=== PATIENT | male | born 1950 | race Caucasian/White ===

== ENCOUNTER 2019-10-23 09:33 | Inpatient (IN) | payer MEDICARE, OTHER ==
[~2019-10-23] VITALS: Ht 182.9 cm; Wt 82.6 kg
[2019-10-23] VITALS (17 sets, daily range): BP systolic 79–142; BP diastolic 38–110
--- NOTE | 2019-10-23 09:40 | NUR ---
BIB ra, pt was found down altered in apartment, BS 150 on scene. On room air, breathing evenly and unlabored. connected to the monitor and pulse ox, kept comfortable, will continue to monitor accordingly.
[2019-10-23] MEDS ORDERED: IV NS 0.9% 500 ML BAG IV ONE (10:00)
--- NOTE | 2019-10-23 10:01 | NUR ---
waitng for labs and ekg @1000 yw
[2019-10-23 10:07] LABS: BASOPHILS # (AUTO) 0.2 /CMM (0.0-0.2); BASOPHILS % (AUTO) 0.9 % (0.0-2.0); EOSINOPHILS % (AUTO) 0.1 % (0.0-6.0); HEMATOCRIT 45 % (39-51); HEMOGLOBIN 14.6 g/dL (13.5-17.5); LYMPHOCYTES # (AUTO) 1.1 /CMM (0.8-4.8); LYMPHOCYTES % (AUTO) 4.6 % (20.0-44.0); MEAN CORPUSCULAR HGB CONC 32 g/dl (31.0-36.0); MEAN CORPUSCULAR VOLUME 103 fL (80-96); MONOCYTES # (AUTO) 2.1 /CMM (0.1-1.30); MONOCYTES % (AUTO) 9.2 % (2.0-12.0); NEUTROPHILS # (AUTO) 19.8 /CMM (1.8-8.9); NEUTROPHILS % (AUTO) 85.2 % (43.0-81.0); PLATELET COUNT (AUTO) 446 /CMM (150-450); WHITE BLOOD COUNT (AUTO) 23.2 K/uL (4.3-11.0)
[2019-10-23 10:09] LABS: APPEARANCE,URINE Clear (CLEAR); BILIRUBIN,URINE LARGE (NEGATIVE); BLOOD, URINE Negative Ery/uL (NEGATIVE); COLOR,URINE Yellow (YELLOW); KETONES,URINE 15 (NEGATIVE); LEUKOCYTE ESTERASE ,URINE Negative (NEGATIVE); NITRITE, URINE Negative (NEGATIVE); PROTEIN,URINE 100 mg/dl (NEGATIVE); UGLUCOSE Negative (NEGATIVE)
[2019-10-23 10:21] LABS: BACTERIA,URINE Rare /HPF (None Seen); SQUAMOUS EPITHELIAL CELL,UR None Seen /HPF (None Seen); WBC,URINE 0-2 /HPF (0-3)
[2019-10-23] MEDS ORDERED: CEFEPIME 1 GM in IV D5W 50 ML IV ONE (10:30)
[2019-10-23] MEDS ORDERED: DILTIAZEM HCL 25 MG IV IVP ONE (10:30)
[2019-10-23] MEDS ORDERED: VANCOMYCIN 1 GM in IV D5W 250 ML IV ONE (10:30)
[2019-10-23] MEDS ORDERED: DILTIAZEM HCL IV 125 MG in IV D5W 100 ML IV ONE (10:30)
[2019-10-23 10:34] LABS: ALANINE AMINOTRANSFERASE 68 U/L (12-78); ALBUMIN 2.8 g/dL (3.4-5.0); ALCOHOL, BLOOD < 3 mg/dL (0-0); ALKALINE PHOSPHATASE 124 U/L (46-116); ASPARTATE AMINOTRANSFERASE 54 U/L (15-37); BILIRUBIN,DIRECT 0.6 mg/dL (0.0-0.2); BILIRUBIN,TOTAL 1.4 mg/dL (0.2-1.0); CALCIUM, SERUM 9.4 mg/dL (8.5-10.1); CARBON DIOXIDE 27 mmol/L (21-32); CHLORIDE 115 mmol/L (98-107); CREATININE 1.8 mg/dL (0.6-1.3); GLUCOSE 177 mg/dL (74-106); POTASSIUM 3.5 mmol/L (3.5-5.1); TOTAL PROTEIN, SERUM 8.1 g/dL (6.4-8.2); UREA NITROGEN, BLOOD 38 mg/dL (7-18)
[2019-10-23 10:35] LABS: ACETAMINOPHEN 0 ug/ml (10-30); SALICYLATE 1.1 mg/dL (2.8-20.0)
[2019-10-23 10:36] LABS: SODIUM SERUM 159 mmol/L (136-145)
--- NOTE | 2019-10-23 10:36 | NUR ---
SODIUM 159 MADE AWARE.
[2019-10-23] MEDS ORDERED: DILTIAZEM HCL 25 MG IV ONE (10:45)
[2019-10-23 11:02] LABS: SERUM AMMONIA 10 umol/L (11-32)
[2019-10-23] MEDS ORDERED: IV NS 0.9% 1,000 ML IV ONE (11:30)
[2019-10-23 11:40] LABS: THYROID STIMULATING HORMONE 2.717 uIU/mL (0.358-3.74)
[2019-10-23] MEDS ORDERED: LEVE500T9 PO (11:47)
[2019-10-23] MEDS ORDERED: DEXA4TAB2 PO (11:47)
[2019-10-23] MEDS ORDERED: PIOG30TA10 PO (11:47)
[2019-10-23] MEDS ORDERED: TRIA1TAB3 PO (11:47)
[2019-10-23] MEDS ORDERED: ALFU10TA10 PO (11:47)
[2019-10-23] MEDS ORDERED: DORZ10DR10 EACHEYE (16:16)
[2019-10-23] MEDS ORDERED: BRIM5DRO2 EACHEYE (16:16)
[2019-10-23] MEDS ORDERED: DORZOLAMIDE OPTH 2% 10 ML BOTTLE EACHEYE SCH (17:00)
[2019-10-23] MEDS ORDERED: CEFEPIME 1 GM in IV NS 0.9% 50 ML IV SCH (17:00)
[2019-10-23] MEDS ORDERED: ONDANSETRON HCL/PF 4 MG/2 ML VIAL IVP PRN (17:00)
[2019-10-23] MEDS ORDERED: IV NS 0.9% 1,000 ML BAG IV ONE (17:00)
[2019-10-23] MEDS ORDERED: DILTIAZEM HCL IV 125 MG in IV NS 0.9% 100 ML IV PRN (17:00)
[2019-10-23] MEDS ORDERED: Z GUARD REMEDY 2 OZ OINT TP PRN (17:00)
[2019-10-23] MEDS ORDERED: ACETAMINOPHEN 325 MG TABLET PO PRN (17:00)
--- NOTE | 2019-10-23 17:01 | NUR ---
wheeled patient via gurney accompanied by EMT and RN in distress. Cardizem infusing on transfer. RN at bedside to assume care.
[2019-10-23] MEDS ORDERED: FEE PK DOSING 1 MIN EA MC ONE (17:29)
[2019-10-23] MEDS: LORAZEPAM INJ 2 MG/ML VIAL IV PRN (17:42)
--- NOTE | 2019-10-23 18:00 | NUR ---
WILTON WEAVER INITIAL NOTE RECEIVED PATIENT ANXIOUS, GUARDED. RESPONDS TO PAINFUL STIMULI, DOES NOT SPEAK AT THIS TIME. ABLE TO NOD YES OR NO. DENIES PAIN, NODS YES TO FEELING ANXIOUS. NOTED PATIENT PULLING LINES, REORIENTED. INFORMED DR VITALE PATIENT IS VERY ANXIOUS AND TACHY AT 160'S, WITH ORDER FOR ATIVAN 0.5MG Q6 PRN. RECEIVED PATIENT WITH CARDIZEM AT 0.5MG/HR RUNNING. SKIN ASSESSMENT DONE. ON TELE MONITOR SINUS TACH. SIDE RAILS UP AND LOCKED. BED KEPT AT LOWEST POSITION. CALL LIGHT KEPT WITHIN EASY REACH. WILL CONTINUE TO MONITOR.
[2019-10-23] MEDS: TIMOLOL 0.5% SOLN OPHTH 5 ML BOTTLE EACHEYE SCH (19:13)
[2019-10-23] MEDS: IV NS 0.9% 1,000 ML IV PRN (19:34)
--- NOTE | 2019-10-23 20:20 | NUR ---
BIAS BINDING CUTTER NOTE MED NOT GIVEN PASSED ON TO [facility]LE BPM CONSULTANT TO ADMINISTER, DUE MEDICATIONS WERE NOT AVAILABLE WHEN THEY WERE DUE. UNABLE TO DO IV SPREADSHEET FOR 1300ML NS ONE TIME ORDER. DID NOT APPEAR ON SPREADSHEET, ANOTHER RN CONFIRMED.
--- NOTE | 2019-10-23 20:30 | NUR ---
LINE INSTALLATION SUPERVISOR: PT REMAINS LETHARGIC, OPENS EYES WT TOUCH AND PAIN STIMULI. FOLLOW SIMPLE COMMANDS AT TIMES. UNCONTROLLED A. FIB ON TWISTING FRAME OPERATOR, CONTINUE ON CARDIZEM DRIP AT 5MG/HR, WILL TITRATE NEEDED. AFEBRILE. STILL ON NS AT 125ML/HR. LEFT NGT INSERTED AND PLACEMENT VERIFIED BY PRIMARY NURSE AND CHARGE NURSE JAGDEEP. F/C PATENT AND INTACT DRAINING CLOUDY MAURICE COLORED URINE TO GRAVITY. HOB AT 35 DEGREES. BED IN LOWEST POSITION AND LOCKED, SIDE RAILS UP X 3, BED ALARM ACTIVATED. WILL CONTINUE TO MONITOR.
[2019-10-23] MEDS: BRIMONIDINE TARTRATE OPHT SOLN 5 ML BOTTLE EACHEYE SCH (21:10)
[2019-10-23] MEDS: LEVETIRACETAM SOL (5 ML) 100 MG/ML UDC PO SCH (21:13)
[2019-10-23] MEDS: CEFEPIME 2 GM in IV D5W 100 ML IV SCH (21:13)
[2019-10-23] MEDS: ENOXAPARIN SODIUM 40 MG/0.4 ML DISP.SYRIN SQ SCH (21:14)
[2019-10-23] MEDS: DEXAMETHASONE 4 MG TABLET PO SCH (21:16)
[2019-10-23] MEDS ORDERED: ZOLPIDEM TARTRATE 5 MG TABLET PO PRN (22:00)
--- NOTE | 2019-10-23 23:00 | NUR ---
TRUCKER: PRIMITIVO. WRIST RESTRAINTS ORDERED BY AND APPLIED FOR EPISODES OF TRYING TO PULL NGT AND IV TUBINGS. SKIN AND CIRCULATION WNL. SAFETY PRECAUTION NOTED AT ALL TIMES.
[2019-10-24] VITALS (38 sets, daily range): BP systolic 74–127; BP diastolic 33–97
--- NOTE | 2019-10-24 | NUR ---
APPLICATOR SPRAYER: CARDIZEM DRIP STOPPED AT THIS TIME FOR LOW BP. ON IN AND OUT OF A. FIB, CONTROLLED. KWESI MIDLINE INSERTED GAUGE 18 AND TOLERATED FAIRLY. WILL CONTINUE TO MONITOR.
[2019-10-24] MEDS: IV NS 0.9% 1,000 ML IV PRN (01:07)
[2019-10-24 04:23] LABS: BASOPHILS # (AUTO) 0.1 /CMM (0.0-0.2); BASOPHILS % (AUTO) 0.5 % (0.0-2.0); EOSINOPHILS % (AUTO) 0.1 % (0.0-6.0); HEMATOCRIT 35 % (39-51); HEMOGLOBIN 11.3 g/dL (13.5-17.5); LYMPHOCYTES # (AUTO) 0.5 /CMM (0.8-4.8); MEAN CORPUSCULAR HGB CONC 32 g/dl (31.0-36.0); MEAN CORPUSCULAR VOLUME 104 fL (80-96); NEUTROPHILS # (AUTO) 15.6 /CMM (1.8-8.9); NEUTROPHILS % (AUTO) 90.4 % (43.0-81.0); PLATELET COUNT (AUTO) 269 /CMM (150-450); RED BLOOD CELL COUNT(AUTO) 3.36 MIL/uL (4.5-6.0); WHITE BLOOD COUNT (AUTO) 17.3 K/uL (4.3-11.0)
[2019-10-24 04:53] LABS: THYROID STIMULATING HORMONE 1.138 uIU/mL (0.358-3.74)
[2019-10-24 04:59] LABS: ALBUMIN 2.1 g/dL (3.4-5.0); BILIRUBIN,TOTAL 1.1 mg/dL (0.2-1.0); CALCIUM, SERUM 7.7 mg/dL (8.5-10.1); CREATININE 1.1 mg/dL (0.6-1.3); MAGNESIUM 2.6 mg/dL (1.8-2.4); PHOSPHORUS 2.4 mg/dL (2.5-4.9); POTASSIUM 3.2 mmol/L (3.5-5.1); TOTAL PROTEIN, SERUM 6.2 g/dL (6.4-8.2)
[2019-10-24] MEDS: VANCOMYCIN 1 GM in IV D5W 250 ML IV SCH ×2 (05:47→23:26)
--- NOTE | 2019-10-24 06:15 | NUR ---
ASSOCIATE CHEMIST: DR. WOOTEN MADE AWARE OF CRITICAL SODIUM RESULT WT ORDER TO CHANGE IVF TO 1/2 NS AT 125ML/HR. NOTED AND CARRIED OUT. STILL IN AND OUT OF A. FIB CONTROLLED. NO OTHER SIGNIFICANT L[place]. REMAINS ON R/A WT NO ACUTE DISTRESS. BILAT. SOFT WRIST RESTRAINTS IN PLACE FOR EPISODES OF TRYING TO REMOVE TUBINGS. SKIN AND CIRCULATION WNL. SAFETY PRECAUTION NOTED AT ALL TIMES.
[2019-10-24] MEDS ORDERED: IV 1/2NS 1000 ML 1,000 ML IV PRN (07:00)
[2019-10-24] MEDS ORDERED: POTASSIUM PHOSPHATE MM 15 MMOL in IV NS 0.9% 250 ML IV SCH (08:00)
[2019-10-24] MEDS: DEXAMETHASONE 4 MG TABLET PO SCH ×3 (08:52→18:30)
[2019-10-24] MEDS: TIMOLOL 0.5% SOLN OPHTH 5 ML BOTTLE EACHEYE SCH ×2 (08:52→18:32)
[2019-10-24] MEDS: BRIMONIDINE TARTRATE OPHT SOLN 5 ML BOTTLE EACHEYE SCH ×3 (08:52→18:32)
[2019-10-24] MEDS: LEVETIRACETAM SOL (5 ML) 100 MG/ML UDC PO SCH ×2 (08:52→20:54)
[2019-10-24] MEDS: PANTOPRAZOLE 40 MG VIAL IV SCH (08:52)
[2019-10-24] MEDS: DORZOLAMIDE OPTH 2% 10 ML BOTTLE EACHEYE SCH ×2 (08:52→18:32)
--- NOTE | 2019-10-24 08:52 | NUR ---
WOUND CARE CONSULT: REVIEWED CHART, NURSING DOCUMENTATION AND PHOTOS WHICH SHOW CRUSTED WOUNDS TO LOWER LEGS, UNSTAGEABLE WOUND TO LEFT UPPER SACRUM, LEFT BACK INTACT DEEP TISSUE INJURY AND SCARRING TO SACRUM EXTENDING TO BUTTOCKS, ALL PRESENT ON ADMISSION. RECOMMEND DPM AND SURGICAL CONSULTS. DR LIN AND DR ANN GONGORA NOTIFIED OF CONSULT REQUESTS. RECOMMENDATIONS MADE FOR SKIN PROTECTION AND WOUND CARE. DEFER TO DPM FOR LOWER EXTREMITIES. FIRST STEP LOW AIRLOSS MATTRESS IS ON ORDER. WILL SEE PRN. IN AGREEMENT WITH PLAN OF CARE.
[2019-10-24] MEDS ORDERED: PIOGLITAZONE HCL 15 MG TABLET PO SCH (09:00)
[2019-10-24] MEDS: DAKINS QUARTER STRENGTH (0.125%) 480 ML BOTTLE TOP SCH (09:00)
[2019-10-24] MEDS: POTASSIUM PHOSPHATE MM 7.5 MMOL in IV NS 0.9% 100 ML IV SCH ×2 (09:28→12:29)
[2019-10-24] MEDS: CEFEPIME 2 GM in IV D5W 100 ML IV SCH ×2 (09:37→20:54)
[2019-10-24] MEDS: DIGOXIN INJ 0.5 MG/2 ML AMPUL IV SCH ×2 (12:46→18:32)
--- NOTE | 2019-10-24 12:53 | NUR ---
Social service consult requested by . Pt was found down in his apartment. Pt resides alone. TABLET MAKING MACHINE OPERATOR conducted chart review and consulted with ICU CLARISSA Gray. Per CLARISSA Gray, pt is confused and unable to participate in a conversation. Per CLARISSA Gray, pt does have a cellphone that is unlocked. Pt's bedside RN to attempt to get some phone contacts. CLARISSA Gray reports, pt has lung CA which has metastasized and will most likely need placement once medically cleared. Vice President Process to remain available as needed for support.
[2019-10-24] MEDS: AMMONIUM LACTATE 227 GM BOTTLE TP SCH (18:31)
[2019-10-24] MEDS: IV D5/0.45 NACL 1,000 ML IV PRN (19:02)
--- NOTE | 2019-10-24 20:00 | NUR ---
auriculotherapist notes Received pts in bed with eyes open non verbal ,on tele sr on the monitor pts on R/A sating 98%.no sob no distress noted breathing even and unlabored , v/s stable afebrile , no seizure activities noted .with ngt on left nosetrils pts npo except meds .all due meds given as ordered. with ivf of D5 1/2 ns at 125cc/hr infusing well ,with right ua midline intact and patent , right ac #18 , left arm G#22 intact and patent , hernandez cath intact and patent draining with yellowish urine output , with bilateral soft wrist restraint to prevent from pulling invasive tubing , turned and repositioned , hob elevated for aspiration precaution ,kept pts clean dry and comfortable ,will continue to monitor pts.pts still pending result for covid 19 ,precautionary measures observed at all times pts on droplet precaution .bed on low and locked safety measures observed ,will continue to monitor pts .
[2019-10-24] MEDS: ENOXAPARIN SODIUM 40 MG/0.4 ML DISP.SYRIN SQ SCH (20:55)
[2019-10-25] VITALS (11 sets, daily range): BP systolic 96–118; BP diastolic 54–76
[2019-10-25] MEDS: DIGOXIN INJ 0.5 MG/2 ML AMPUL IV SCH (00:31)
[2019-10-25 05:58] LABS: ALANINE AMINOTRANSFERASE 48 U/L (12-78); ALBUMIN 1.8 g/dL (3.4-5.0); ALKALINE PHOSPHATASE 72 U/L (46-116); ASPARTATE AMINOTRANSFERASE 54 U/L (15-37); BILIRUBIN,TOTAL 0.7 mg/dL (0.2-1.0); CALCIUM, SERUM 7.2 mg/dL (8.5-10.1); CARBON DIOXIDE 23 mmol/L (21-32); CHLORIDE 118 mmol/L (98-107); CREATININE 0.9 mg/dL (0.6-1.3); GLUCOSE 193 mg/dL (74-106); MAGNESIUM 2.3 mg/dL (1.8-2.4); PHOSPHORUS 1.9 mg/dL (2.5-4.9); POTASSIUM 3.3 mmol/L (3.5-5.1); SODIUM SERUM 152 mmol/L (136-145); TOTAL PROTEIN, SERUM 5.3 g/dL (6.4-8.2); UREA NITROGEN, BLOOD 20 mg/dL (7-18)
[2019-10-25] MEDS: AMMONIUM LACTATE 227 GM BOTTLE TP SCH ×2 (09:00→17:00)
[2019-10-25] MEDS: TIMOLOL 0.5% SOLN OPHTH 5 ML BOTTLE EACHEYE SCH ×2 (09:00→17:23)
[2019-10-25] MEDS: DEXAMETHASONE 4 MG TABLET PO SCH ×3 (09:00→17:23)
[2019-10-25] MEDS: BRIMONIDINE TARTRATE OPHT SOLN 5 ML BOTTLE EACHEYE SCH ×3 (09:00→17:23)
[2019-10-25] MEDS: DORZOLAMIDE OPTH 2% 10 ML BOTTLE EACHEYE SCH ×2 (09:00→17:23)
[2019-10-25] MEDS: PANTOPRAZOLE 40 MG VIAL IV SCH (09:47)
[2019-10-25] MEDS: CEFEPIME 2 GM in IV D5W 100 ML IV SCH ×2 (09:48→21:19)
[2019-10-25] MEDS: LEVETIRACETAM SOL (5 ML) 100 MG/ML UDC PO SCH ×2 (09:48→21:19)
[2019-10-25] MEDS: IV D5/0.45 NACL 1,000 ML IV PRN (10:01)
[2019-10-25] MEDS ORDERED: POTASSIUM PHOSPHATE MM 15 MMOL in IV NS 0.9% 250 ML IV SCH (10:30)
[2019-10-25] MEDS ORDERED: POTASSIUM CHLORIDE 20 MEQ TAB.PRT.SR PO SCH (12:00)
[2019-10-25] MEDS: POTASSIUM PHOSPHATE MM 7.5 MMOL in IV D5W 100 ML IV SCH ×2 (12:51→14:59)
[2019-10-25 13:05] LABS: BASOPHILS % (AUTO) 0.2 % (0.0-2.0); HEMATOCRIT 30 % (39-51); HEMOGLOBIN 9.7 g/dL (13.5-17.5); LYMPHOCYTES # (AUTO) 0.6 /CMM (0.8-4.8); LYMPHOCYTES % (AUTO) 3.1 % (20.0-44.0); MEAN CORPUSCULAR HGB CONC 32 g/dl (31.0-36.0); MEAN CORPUSCULAR VOLUME 103 fL (80-96); MONOCYTES # (AUTO) 0.6 /CMM (0.1-1.30); MONOCYTES % (AUTO) 3.6 % (2.0-12.0); NEUTROPHILS # (AUTO) 16.5 /CMM (1.8-8.9); NEUTROPHILS % (AUTO) 93.1 % (43.0-81.0); PLATELET COUNT (AUTO) 230 /CMM (150-450); WHITE BLOOD COUNT (AUTO) 17.7 K/uL (4.3-11.0)
[2019-10-25 13:33] LABS: BAND % (MANUAL) 3 % (0.0-5.0); LYMPHOCYTES % (MANUAL) 2 % (16-48); MONOCYTES % (MANUAL) 3 % (0-11.0)
[2019-10-25 13:34] LABS: NEUTROPHILS % (MANUAL) 92 (42-76)
[2019-10-25] MEDS: DAKINS QUARTER STRENGTH (0.125%) 480 ML BOTTLE TOP SCH (17:22)
[2019-10-25] MEDS: VANCOMYCIN 1 GM in IV D5W 250 ML IV SCH (17:24)
--- NOTE | 2019-10-25 19:43 | NUR ---
RN OPENING NOTE RECEIVED PATIENT IN BED RESTING,ALERT OPEN EYES VERBALLY RESPONSIVE ,NON SENSE TALKING, BREATHING IS EVEN AND UNLABORED NO SOB NOT ACUTE DISTRESS NOTED,ON ROOM AIR,ON BILATERAL RESTRAINS FOR MOVING LINES,ON D5 1/2 NS 125ML/HR,IV SITE IS ON RIGHT AC #18 G INTACT,NPO ON NGT.NGT IS IN PLACE NO RESIDUAL NOTED,KEEP COMFORTABLE,CONTINUE TO MONITOR.
[2019-10-25] MEDS: ENOXAPARIN SODIUM 40 MG/0.4 ML DISP.SYRIN SQ SCH (21:21)
[2019-10-26] VITALS: BP 111/66
[2019-10-26] MEDS: IV D5/0.45 NACL 1,000 ML IV PRN ×2 (01:45→14:39)
[2019-10-26 04:00] VITALS: BP 112/77
[2019-10-26] MEDS: VANCOMYCIN 1 GM in IV D5W 250 ML IV SCH ×2 (04:47→17:13)
--- NOTE | 2019-10-26 06:51 | NUR ---
RN CLOSING NOTE PATIENT REMAINS ALERT CONFUSED VERBALLY RESPONSIVE NON SENCE TALKING,NPO ON NGT FEEDING ON IV HYDRATION D5 1/2NS 125CC/HR,ON BRISCOE CATHETER,URINE DRAINING WELL,ALL DUE MEDS GIVEN VIA NGT,HE TOLERATED WELL,KEPT CLEAN AND DRY ALL THE TIME,ALL NEEDS MET.WILL ENDORSE TO NEXT COMING SHIFT FOR CONTINUATION OF CARE.
[2019-10-26 06:55] LABS: BASOPHILS % (AUTO) 0.2 % (0.0-2.0); EOSINOPHILS % (AUTO) 0.1 % (0.0-6.0); HEMATOCRIT 31 % (39-51); HEMOGLOBIN 10.4 g/dL (13.5-17.5); LYMPHOCYTES # (AUTO) 0.7 /CMM (0.8-4.8); LYMPHOCYTES % (AUTO) 3.6 % (20.0-44.0); MEAN CORPUSCULAR HGB CONC 33 g/dl (31.0-36.0); MEAN CORPUSCULAR VOLUME 100 fL (80-96); MONOCYTES # (AUTO) 0.8 /CMM (0.1-1.30); MONOCYTES % (AUTO) 3.9 % (2.0-12.0); NEUTROPHILS # (AUTO) 18.7 /CMM (1.8-8.9); NEUTROPHILS % (AUTO) 92.2 % (43.0-81.0); PLATELET COUNT (AUTO) 221 /CMM (150-450); RED BLOOD CELL COUNT(AUTO) 3.14 MIL/uL (4.5-6.0); WHITE BLOOD COUNT (AUTO) 20.3 K/uL (4.3-11.0)
[2019-10-26 07:22] LABS: ALBUMIN 1.8 g/dL (3.4-5.0); BILIRUBIN,TOTAL 0.6 mg/dL (0.2-1.0); CREATININE 0.9 mg/dL (0.6-1.3); MAGNESIUM 2.1 mg/dL (1.8-2.4); POTASSIUM 3.7 mmol/L (3.5-5.1); TOTAL PROTEIN, SERUM 5.3 g/dL (6.4-8.2)
[2019-10-26] MEDS: DEXAMETHASONE 4 MG TABLET PO SCH ×3 (07:32→17:09)
--- NOTE | 2019-10-26 07:49 | NUR ---
RN OPENING NOTE: RECEIVED PATIENT IN ROOM. NO SIGNS OF RESPIRATORY. HR 114. SAFETY MEASURES IMPLEMENTED, BED IN LOWEST POSITION, LOCKED, SIDE RAILS UP, CALL LIGHT WITHIN REACH. ENDORSED TO INCOMING SHIFT RN FOR CONTINUITY OF CARE.
[2019-10-26 08:00] VITALS: BP 99/68
[2019-10-26] MEDS: LEVETIRACETAM SOL (5 ML) 100 MG/ML UDC PO SCH ×2 (08:34→22:14)
[2019-10-26] MEDS: PANTOPRAZOLE 40 MG VIAL IV SCH (08:34)
[2019-10-26] MEDS: ENOXAPARIN SODIUM 40 MG/0.4 ML DISP.SYRIN SQ SCH (08:36)
[2019-10-26] MEDS: BRIMONIDINE TARTRATE OPHT SOLN 5 ML BOTTLE EACHEYE SCH ×3 (08:36→16:27)
[2019-10-26] MEDS: TIMOLOL 0.5% SOLN OPHTH 5 ML BOTTLE EACHEYE SCH ×2 (08:37→16:27)
[2019-10-26] MEDS: DORZOLAMIDE OPTH 2% 10 ML BOTTLE EACHEYE SCH ×2 (08:37→16:28)
[2019-10-26] MEDS: DAKINS QUARTER STRENGTH (0.125%) 480 ML BOTTLE TOP SCH (08:38)
[2019-10-26] MEDS: AMMONIUM LACTATE 227 GM BOTTLE TP SCH ×2 (08:39→16:28)
--- NOTE | 2019-10-26 09:30 | NUR ---
JOCELYNE RN NOTES PT HAS CT CHEST ORDERED BY DR MEHTA. TOOK TO CT CHEST AND WAS DONE. PT TOLERATED WELL.
[2019-10-26 10:17] LABS: ABG BASE EXCESS 1.1 mmol/L; ABG OXYGEN SATURATION 98.9 % (92.0-98.5); ABG PCO2 30.2 mmHg (35.0-45.0); ABG PH 7.509 (7.350-7.450); ABG PO2 156.2 mmHg (75.0-100.0); AaDO2 58.2 mmHg; COHb 0.1 % (0.5-1.5); MetHb 0.3 % (0.0-1.5); O2Hb 98.5 % (94.0-97.0); SITE, ABG Right Radial; VENT MODE, BG N/C
[2019-10-26] MEDS: CEFEPIME 2 GM in IV D5W 100 ML IV SCH ×2 (10:30→22:14)
[2019-10-26 12:00] VITALS: BP 110/63
[2019-10-26] MEDS ORDERED: K PHOS NEUTRAL 250 MG TABLET PO ONE (14:30)
[2019-10-26 16:00] VITALS: BP 104/55
[2019-10-26] MEDS: DIGOXIN 0.125 MG TABLET PO SCH (16:34)
--- NOTE | 2019-10-26 16:37 | NUR ---
JOCELYNE RN NOTES INFORMED DOCTOR THAT PATIENT IS STILL RUNNING 125 NS /PER HOUR. DOCTOR ORDERED TO DECREASE TO 75 NS / PER HOUR.
--- NOTE | 2019-10-26 17:17 | NUR ---
JOCELYNE RN NOTES CALLED PHARMACY JOSE TO TELL TROUGH WASN'T CHECKED. THE LAST TROUGH WAS CHECKED ON 10/24/19 Jose ORDERED TROUGH AND RN [facility] ON [facility].
--- NOTE | 2019-10-26 17:40 | NUR ---
JOCELYNE RN NOTES ORDERED SPEECH EVAL BY DR EDMOND ORDER FOR 10/26 AT 8:00 AM
--- NOTE | 2019-10-26 18:11 | NUR ---
RN CLOSING NOTE PATIENT REMAINS IN ROOM. NO SIGNS OF RESPIRATORY DISTRESS. SAFETY MEASURES IMPLEMENTED, BED IN LOWEST POSITION, LOCKED, SIDE RAILS UP, CALL LIGHT WITHIN REACH. ALL NEEDS AND ORDERS ADDRESSED DURING THE SHIFT. ALL DUE MEDS GIVEN ORDERED & SCHEDULED ; PATIENT TOLERATED WELL.PATIENT KEPT CLEAN AND COMFORTABLE WITHIN THE SHIFT. ENDORSED TO INCOMING SHIFT RN FOR CONTINUITY OF CARE.
--- NOTE | 2019-10-26 18:25 | NUR ---
JOCELYNE DEL RIO NOTES PATIENT IS REFUSING INSULIN WANTS HIS METFORMIN INFORMED DR EDMOND IF HE WOULD LIKE FOR ME TO PUT ON ORDER Addendum: 10/26/19 at 1844 by RAOUL GOMEZ RN JOCELYNE DEL RIO NOTES NOT FOR THIS
--- NOTE | 2019-10-26 19:16 | NUR ---
JOCELYNE DEL RIO NOTES PATIETN WANTS BACK INSULIN DUE TO DOCTOR INFORMED NO METFORMIN BECAUSE PT IS IN SEPSIS. GAVE 2 UNIT OF INSULIN BS 144. Addendum: 10/26/19 at 1918 by RAOUL GOMEZ RN JOCELYNE DEL RIO NOTES WRONG PATIENT
--- NOTE | 2019-10-26 19:25 | NUR ---
POWERHOUSE ELECTRICIAN APPRENTICE OPENING NOTES: RECEIVED PATIENT IN BED, AWAKE, A/O X3, WITH PERIODS OF CONFUSION. HOB ELEVATED AT 30 DEGREES, WITH O2 NC AT 3L/MIN. WITH NGT INTACT, CLAMPED. NPO EXCEPT MEDS, TOOLROOM MACHINIST AWARE. WITH BILATERAL SOFT WRISTS RESTRAINTS, CHECKED SKIN AND CIRCULATIONS, WNL. WITH BRISCOE CATHETER INTACT, DRAINING TO YELLOW COLORED URINE. BED ALARM ON. BED IN LOWEST AND LOCKED POSITION. WITH AIR MATTRESS ON. CALL LIGHT WITHIN REACH. WITH RIGHT HAND HEALED SCAB, OPEN TO AIR, WITH BILATERAL HANDS NON-PITTING EDEMA, AND WITH SKIN DISCOLORATIONS. ON COVID ISOLATION.
[2019-10-26 20:00] VITALS: BP 109/65
--- NOTE | 2019-10-26 21:27 | NUR ---
RECEIVED A CALL FROM DR MEHTA AND UPDATED HER WITH THE PATIENT'S STATUS.
[2019-10-27] VITALS: BP 100/41
[2019-10-27 04:00] VITALS: BP 102/50
[2019-10-27] MEDS: IV D5/0.45 NACL 1,000 ML IV PRN (04:34)
[2019-10-27] MEDS: VANCOMYCIN 1 GM in IV D5W 250 ML IV SCH (04:34)
--- NOTE | 2019-10-27 06:30 | NUR ---
PROFESSOR OF PSYCHOLOGY CLOSING NOTES: PATIENT IN BED, ASLEEP. NO SOB NOTED. NO COMPLAIN OF PAIN DURING SHIFT. RESTED THROUGHOUT THE NIGHT. BED ALARM ON. BED IN LOWEST AND LOCKED POSITION. WITH BILATERAL SOFT WRISTS RESTRAINTS.
[2019-10-27 07:03] LABS: BASOPHILS % (AUTO) 0.2 % (0.0-2.0); EOSINOPHILS % (AUTO) 0.1 % (0.0-6.0); HEMATOCRIT 29 % (39-51); HEMOGLOBIN 9.7 g/dL (13.5-17.5); LYMPHOCYTES # (AUTO) 0.9 /CMM (0.8-4.8); LYMPHOCYTES % (AUTO) 5.1 % (20.0-44.0); MEAN CORPUSCULAR HGB CONC 34 g/dl (31.0-36.0); MEAN CORPUSCULAR VOLUME 99 fL (80-96); MONOCYTES # (AUTO) 0.8 /CMM (0.1-1.30); MONOCYTES % (AUTO) 4.5 % (2.0-12.0); NEUTROPHILS # (AUTO) 15.6 /CMM (1.8-8.9); NEUTROPHILS % (AUTO) 90.1 % (43.0-81.0); PLATELET COUNT (AUTO) 202 /CMM (150-450); RED BLOOD CELL COUNT(AUTO) 2.91 MIL/uL (4.5-6.0); WHITE BLOOD COUNT (AUTO) 17.4 K/uL (4.3-11.0)
[2019-10-27 07:09] LABS: CALCIUM, SERUM 7.1 mg/dL (8.5-10.1); CREATININE 0.9 mg/dL (0.6-1.3)
[2019-10-27 08:00] VITALS: BP 102/58
[2019-10-27] MEDS: CEFEPIME 2 GM in IV D5W 100 ML IV SCH ×2 (09:03→20:46)
[2019-10-27] MEDS: DEXAMETHASONE 4 MG TABLET PO SCH ×3 (09:03→17:03)
[2019-10-27] MEDS: PANTOPRAZOLE 40 MG VIAL IV SCH (09:03)
[2019-10-27] MEDS: LEVETIRACETAM SOL (5 ML) 100 MG/ML UDC PO SCH ×2 (09:03→21:09)
[2019-10-27] MEDS: BRIMONIDINE TARTRATE OPHT SOLN 5 ML BOTTLE EACHEYE SCH ×3 (09:04→17:00)
[2019-10-27] MEDS: AMMONIUM LACTATE 227 GM BOTTLE TP SCH ×2 (09:05→17:02)
[2019-10-27] MEDS: TIMOLOL 0.5% SOLN OPHTH 5 ML BOTTLE EACHEYE SCH ×2 (09:05→17:00)
[2019-10-27] MEDS: DORZOLAMIDE OPTH 2% 10 ML BOTTLE EACHEYE SCH ×2 (09:05→17:01)
[2019-10-27] MEDS: DAKINS QUARTER STRENGTH (0.125%) 480 ML BOTTLE TOP SCH (09:59)
[2019-10-27] MEDS ORDERED: POTASSIUM CHLORIDE 20 MEQ TAB.PRT.SR PO SCH (10:00)
[2019-10-27] MEDS: NEUTRA PHOS 1 POWD.PACKET PO SCH ×2 (10:52→17:46)
[2019-10-27] MEDS: POTASSIUM CHLORIDE 20 MEQ TAB.PRT.SR PO SCH ×3 (10:52→12:31)
[2019-10-27 12:00] VITALS: BP 108/61
[2019-10-27 12:16] LABS: IMMUNOGLOBULIN A, SERUM 265 mg/dL (61-437); IMMUNOGLOBULIN G, SERUM 698 mg/dL (603-1613); IMMUNOGLOBULIN M, SERUM 101 mg/dL (20-172)
[2019-10-27] MEDS: DIGOXIN 0.125 MG TABLET PO SCH (13:00)
[2019-10-27 16:00] VITALS: BP 106/72
--- NOTE | 2019-10-27 18:20 | NUR ---
RN NOTES [employer] AIR MATTRESS NOT WORKING. ORDERED NEW PUMP FROM [employer], WAITING TO BE DELIVERED.
--- NOTE | 2019-10-27 19:03 | NUR ---
RN CLOSING NOTES PATIENT IS RESTING IN BED COMFORTABLY AT THIS TIME. NO S.SX OF DISTRESS. PT NEEDS HAVE BEEN MET, VITAL SIGNS ARE STABLE, NO ACUTE CHANGES OCCURRED THROUGHOUT THE SHIFT. SAFETY MEASURES HAVE BEEN IMPLEMENTED, CALL LIGHT IS WITHIN REACH, BED IS IN LOWEST AND LOCKED POSITION, SIDE RAILS UP X2, WILL ENDORSE TO NIGHTSHIFT RN FOR LOUIS.
--- NOTE | 2019-10-27 19:46 | NUR ---
harnessmaker:\ received pt with ngtube on left nare, on clamped. informed day rn and intelligence intern that here is no plaxcement check done after inserting ngtube. ngtube inserted in icu, and its been used since then. pt's abdomen soft to touch with active bowel sound heard upon auscultation. injected 60cc of airfilled syringe, noted gurgling sound. greenish to yellow colored gastric secretions//residual obtained upon withdrawal/aspiration.
[2019-10-27 20:00] VITALS: BP 114/66
--- NOTE | 2019-10-27 20:00 | NUR ---
RN NOTES: PT RECEIVED WITH BILATERAL SOFT WRIST RESTRAINT IN PLACED, PT TRYING TO PULL OUT IV ACCESS, AND NGTUBE NECESSARY FOR TREATMENT. RESTRAINT PROTOCOL FOLLOWED. PT ABLE TO MOVE AND WIGGLE ARMS AND HANDS, RADIAL PULSES PALPABLE AND INTACT, GOOD CAPILLARY REFILL NOTED, NO S/S OF IMPEDIMENT IN CIRCULATION NOTED. WILL CONTINUE MONITORING PT.
--- NOTE | 2019-10-27 20:20 | NUR ---
rn notes: xray being done at bedside
[2019-10-27] MEDS: ENOXAPARIN SODIUM 40 MG/0.4 ML DISP.SYRIN SQ SCH (20:48)
--- NOTE | 2019-10-27 21:07 | NUR ---
rn notes/cxr result/ngtube placement: cxr result came back, result as follows: 1. Hazy opacity at the lateral left lower lobe, which corresponds to lingular consolidation. 2. Well-positioned NG tube tip overlying the gastric body. will administer meds via ngtube
--- NOTE | 2019-10-27 21:10 | NUR ---
rn notes: on aspiration precautions, ngtube placement check, kept on high fowlers, all due meds administered vua ngtube, will leave upright/high fowlers for 30mins post med administration.
--- NOTE | 2019-10-27 21:30 | NUR ---
rn notes: per day rnjabier mattress not working and central was made aware, awaiting for delivery of new air mattress
--- NOTE | 2019-10-27 23:38 | NUR ---
accu check: fingerstick blood glucose chek performed, as pt npo xmeds, ivf dc'd, result obtained is 149.
[2019-10-28] VITALS: BP 106/63
[2019-10-28 04:00] VITALS: BP 110/66
--- NOTE | 2019-10-28 06:48 | NUR ---
end of shift report: pt remains a/o x1-2, on 3l oxygen via nc, respirations even and unlabored. ngtube via left nare remains patent and flushing well, on clamped, 250cc free water flush administered via ngtube as ordered. clarence midline remains patent and flushing well, on hl, no s/s of iv infiltration noted. awaiting delivery of new kci mattress, as the previous kci not working/damanged. all due meds administered, kept on aspiration precautions, hob 45 degree at all times. pt remains on bilateral soft wrist restraint, pt able to move and wiggle arms and hands, noted with good capillary refill, bilateral radial pulses palpable, intact, no s/s of impediment in circulation noted. wound care, am care and complete linen change provided. vs remains stable, needs attended. safety precautions for fall remains engaged, call light in reach, will endorse to day rn for continuity of care.
--- NOTE | 2019-10-28 08:05 | NUR ---
M/S RN OPENING NOTES RECEIVED PT ON BED, ASLEEP YET EASILY AROUSABLE, A/O 1-2, RESPONSIVE TO STIMULI. RESPIRATION EVEN AND NON LABORED, NOT IN ACUTE RESPIRATORY DISTRESS, ON O2 AT 3LPM VIA N/C SATING 100%. ABD SOFT AND NON DISTENDED WITH ACTIVE BOWEL SOUNDS, FC WITH TEAM MAURICE COLOR. SKIN WARM TO TOUCH AND DRY. PT DENIES PAIN AND DISCOMFORT. IV SITE AT RIGHT UPPER MIDLINE, PATENT IN FLUSHING, NO S/SX OF INFILTRATION. NGT IN PLACED PER AUSCULTATION, NO RESIDUAL NOTED, HOB ELEVATED. BED IN LOW LOCKED POSITION, SR X2 UP FOR SAFETY, BED ALARM ON, CALL LIGHT WITHIN REACH. COVID 19 NEGATIVE. WILL CONTINUE PLAN OF CARE.
[2019-10-28 08:12] LABS: CALCIUM, SERUM 7.4 mg/dL (8.5-10.1); CREATININE 0.8 mg/dL (0.6-1.3); POTASSIUM 3.8 mmol/L (3.5-5.1)
[2019-10-28 08:15] VITALS: BP 120/75
[2019-10-28] MEDS: PANTOPRAZOLE 40 MG VIAL IV SCH (08:53)
[2019-10-28] MEDS: DAKINS QUARTER STRENGTH (0.125%) 480 ML BOTTLE TOP SCH (08:53)
[2019-10-28] MEDS: LEVETIRACETAM SOL (5 ML) 100 MG/ML UDC PO SCH ×2 (08:53→20:47)
[2019-10-28] MEDS: AMMONIUM LACTATE 227 GM BOTTLE TP SCH ×2 (08:53→16:26)
[2019-10-28] MEDS: DEXAMETHASONE 4 MG TABLET PO SCH ×3 (08:53→16:26)
[2019-10-28] MEDS: DORZOLAMIDE OPTH 2% 10 ML BOTTLE EACHEYE SCH ×2 (08:54→16:26)
[2019-10-28] MEDS: TIMOLOL 0.5% SOLN OPHTH 5 ML BOTTLE EACHEYE SCH ×2 (08:54→16:26)
[2019-10-28] MEDS: BRIMONIDINE TARTRATE OPHT SOLN 5 ML BOTTLE EACHEYE SCH ×3 (08:54→16:26)
[2019-10-28] MEDS: CEFEPIME 2 GM in IV D5W 100 ML IV SCH ×2 (09:10→20:47)
--- NOTE | 2019-10-28 10:54 | NUR ---
M/S RN NOTES PT SEEN AND EVALUATED BY DR. EDMOND, NEW ORDER OF SWALLOW EVAL FOR POSSIBLE REMOVAL OF NGT, IF NOT TOLERATED TO START TUBE FEEDING. MD NOTIFIED THAT PT HAS NO NUTRITION SINCE NGT AND IVF DISCONTINUED. MD AGREED FOR IVF. ORDER PENDING. PER CHARGE NURSE ST ECHO TELLEZ LEFT ALREADY.
[2019-10-28] MEDS: DIGOXIN 0.125 MG TABLET PO SCH (12:38)
--- NOTE | 2019-10-28 12:38 | NUR ---
M/S RN NTOTES DIGOXIN 0.25 MG TAB NGT HELD DUE TO HEART RATE OF 56 THE HIGHEST, LOWEST 48. PT DENIES CHES PAIN, HEAD ACHE, BLURRY VISION. WILL CONTINUE TO MONITOR
[2019-10-28 16:15] VITALS: BP 115/56
--- NOTE | 2019-10-28 18:50 | NUR ---
M/S RN CLOSING NOTES PT A/A/OX1-2. ON O2 AT 1PM SATING 97%, NO PRESENCE OF ACUTE RESPIRATORY DISTRESS, HOB ELEVATED, ON NGT GREEN RESIDUAL 3ML, IN PLACED VIA AUSCULTATION. ABD SOFT AND NON DISTENDED WITH ACTIVE BOWEL SOUNDS, NO BM TODAY, ON FC WITH MAURICE TEA ORANGE COLOR. SKIN WARM TO TOUCH AND DRY. DENIES PAIN AND DISCOMFORT. IV SITE AT RIGHT UPPER MIDLINE PATENT IN FLUSHING, NO S/SX OF INFILTRATION. PT WITH SITTER ON BEDSIDE, NO BEHAVIOR OF COMBATIVENESS, PULLING IV NOR NGT. PT REMAINED CALM AND COOPERATIVE. BED IN LOW LOCKED POSITION, SR X3 UP FOR SAFETY., BED ALARM ON. ENDORSED PT CARE TO NEXT SHIFT.
--- NOTE | 2019-10-28 19:25 | NUR ---
RN OPENING NOTES: RECEIVED PT A/OX1-2. PATIENT IN BED RESTING COMFORTABLY. PATIENT IN NO S/SX OF ACUTE DISTRESS AT THIS TIME. NO SOB NOTED. PATIENT'S BREATHING IS EVEN AND UNLABORED. PATIENT IS ON 2L OF OXYGEN VIA NC; TOLERATING WELL. NOTED IV SITE ON R UA MIDLINE #18 ; PATENT IN INTACT,NO S/S OF INFECTION OR INFILTRATION. BRISCOE CATH IN PLACE, WITH MODERATE MAURICE COLORED URINE OUTPUT NOTED. PATIENT HAS NASO GASTRIC TUBE IN PLACE; PATENT & INTACT, NO RESIDUAL NOTED; CLAMPED. PATIENT HAS A SITTER ON BEDSIDE. S SAFETY MEASURES HAVE BEEN PROVIDED AND IMPLEMENTED. PATIENT BED ALARM IS ON. HEAD OF BED ELEVATED. BED IS LOCKED, IN LOWEST POSITION AND SIDE RAILS UP. CALL LIGHT WITHIN REACH OF THE PATIENT. APPROPRIATE PRECAUTIONS IN PLACE. WILL CONTINUE TO MONITOR AND REASSESS FOR ANY CHANGES.
[2019-10-28 20:00] VITALS: BP 112/64
--- NOTE | 2019-10-28 20:03 | NUR ---
RN NOTES NOTED PT'S TEMPT AT 99.2 @2002, COOLING MEASURES PROVIDED. EDGE BLACKER MADE AWARE. WILL MONITOR AND REASSESS.
[2019-10-28] MEDS: ENOXAPARIN SODIUM 40 MG/0.4 ML DISP.SYRIN SQ SCH (21:20)
[2019-10-29 04:00] VITALS: BP 111/55
--- NOTE | 2019-10-29 04:30 | NUR ---
JOCELYNE RN NOTES GOT ON ORDER FOR NG TUBE FEEDING GLUCERNA 1.2 30 ML/HR. IV RUNNING .
--- NOTE | 2019-10-29 06:53 | NUR ---
RN CLOSING NOTE: PATIENT REMAINS IN ROOM. NO SIGNS OF RESPIRATORY DISTRESS. SAFETY MEASURES IMPLEMENTED, BED IN LOWEST POSITION, LOCKED, SIDE RAILS UP, CALL LIGHT WITHIN REACH. ALL NEEDS AND ORDERS ADDRESSED DURING THE SHIFT. ALL DUE MEDS GIVEN ORDERED & SCHEDULED ; PATIENT TOLERATED WELL.PATIENT KEPT CLEAN AND COMFORTABLE WITHIN THE SHIFT. ENDORSED TO INCOMING SHIFT RN FOR CONTINUITY OF CARE.
[2019-10-29 07:07] LABS: BASOPHILS % (AUTO) 0.2 % (0.0-2.0); EOSINOPHILS % (AUTO) 0.4 % (0.0-6.0); HEMATOCRIT 34 % (39-51); HEMOGLOBIN 10.9 g/dL (13.5-17.5); LYMPHOCYTES # (AUTO) 1.6 /CMM (0.8-4.8); LYMPHOCYTES % (AUTO) 6.9 % (20.0-44.0); MEAN CORPUSCULAR HGB CONC 32 g/dl (31.0-36.0); MEAN CORPUSCULAR VOLUME 102 fL (80-96); MONOCYTES % (AUTO) 4.5 % (2.0-12.0); PLATELET COUNT (AUTO) 198 /CMM (150-450); RED BLOOD CELL COUNT(AUTO) 3.29 MIL/uL (4.5-6.0); WHITE BLOOD COUNT (AUTO) 22.8 K/uL (4.3-11.0)
[2019-10-29 07:29] LABS: CALCIUM, SERUM 7.5 mg/dL (8.5-10.1); CREATININE 0.7 mg/dL (0.6-1.3); MAGNESIUM 1.8 mg/dL (1.8-2.4); POTASSIUM 3.4 mmol/L (3.5-5.1)
[2019-10-29] MEDS: BRIMONIDINE TARTRATE OPHT SOLN 5 ML BOTTLE EACHEYE SCH ×3 (07:41→16:48)
[2019-10-29] MEDS: DORZOLAMIDE OPTH 2% 10 ML BOTTLE EACHEYE SCH ×2 (07:42→16:47)
[2019-10-29] MEDS: TIMOLOL 0.5% SOLN OPHTH 5 ML BOTTLE EACHEYE SCH ×2 (07:42→16:47)
[2019-10-29] MEDS: DAKINS QUARTER STRENGTH (0.125%) 480 ML BOTTLE TOP SCH (07:43)
[2019-10-29] MEDS: AMMONIUM LACTATE 227 GM BOTTLE TP SCH ×2 (07:44→16:48)
--- NOTE | 2019-10-29 07:45 | NUR ---
RN OPENING NOTE PATIENT RECEIVED IN BED RESTING. PT IS A/A/O X4. PT IS ON 2 L O2 VIA NC SATING 97%. PT IS AFIB .PT IS AMBULATORY WITH CANE. PATIENT HAS URINAL. YELLOW, URINE. PT HAS L AC 18 G AND R AC 18 MIDLINE G S/L. SAFETY MEASURES IN PLACE BED AT LOWEST POSITION AND LOCKED, CALL LIGHT WITH IN REACH, SIDE RAILS UPX2, BED ALARM IS ON. WILL CONTINUE TO MONITOR. Addendum: 10/29/19 at 0752 by RAOUL GOMEZ RN RN OPENING NOTES WRONG OPENING NOTES FOR DIFFERENT PATIENT. PATIENT RECEIVED IN BED RESTING. PT IS A/A/O X1. PT IS ON 2 L O2 VIA NC SATING 97%. PT IS AFIB .PT IS BED BOUND. PATIENT HAS BRISCOE . PT HAS R UA 18 MIDLINE G S/L. SAFETY MEASURES IN PLACE BED AT LOWEST POSITION AND LOCKED, CALL LIGHT WITH IN REACH, SIDE RAILS UPX2, BED ALARM IS ON. WILL CONTINUE TO MONITOR.
[2019-10-29] MEDS: CEFEPIME 2 GM in IV D5W 100 ML IV SCH ×2 (08:33→20:50)
[2019-10-29] MEDS: PANTOPRAZOLE 40 MG VIAL IV SCH (08:34)
[2019-10-29] MEDS: ENOXAPARIN SODIUM 40 MG/0.4 ML DISP.SYRIN SQ SCH (08:34)
[2019-10-29] MEDS: LEVETIRACETAM SOL (5 ML) 100 MG/ML UDC PO SCH ×2 (08:34→20:48)
[2019-10-29] MEDS: DEXAMETHASONE 4 MG TABLET PO SCH ×3 (08:34→16:46)
[2019-10-29 09:09] LABS: BAND % (MANUAL) 1 % (0.0-5.0); EOSINOPHILS % (MANUAL) 2 % (0-4); LYMPHOCYTES % (MANUAL) 6 % (16-48); MONOCYTES % (MANUAL) 4 % (0-11.0); MYELOCYTES % 2 % (0-0); NEUTROPHILS % (MANUAL) 85 (42-76)
[2019-10-29] MEDS: POTASSIUM CL. PREMIX PERIPHER. 50 ML IV SCH ×4 (10:52→13:04)
[2019-10-29] MEDS: IV D5/0.45 NACL 1,000 ML IV PRN (11:11)
--- NOTE | 2019-10-29 11:28 | NUR ---
JOCELYNE RN NOTES SWALLOW EVAL WAS FAILED. CHARGE NURSE PUT AN ORDER FOR TUBE FEEDING. DR EDMOND ORDERED 5% DEXTROSE WITH 1/2 NS 100ML/HR.
[2019-10-29 12:00] VITALS: BP 122/67
[2019-10-29] MEDS: DIGOXIN 0.125 MG TABLET PO SCH (12:50)
[2019-10-29 16:07] LABS: *SPE A/G RATIO 0.7 (0.7-1.7); *SPE ALPHA-1-GLOBULIN 0.3 g/dL (0.0-0.4); *SPE ALPHA-2-GLOBULIN 1.1 g/dL (0.4-1.0); *SPE BETA GLOBULIN 0.8 g/dL (0.7-1.3); *SPE GLOBULIN, TOTAL 2.8 g/dL (2.2-3.9); *SPE M-SPIKE Not Observed g/dL (Not Observed); *SPEGAMMA GLOBULIN 0.7 g/dL (0.4-1.8)
[2019-10-29] MEDS: GLUCERNA 1.2 1,000 ML BOTTLE GT PRN (17:23)
--- NOTE | 2019-10-29 18:31 | NUR ---
RN CLOSINGNOTE PATIENT RESTING IN BED RESTING. PT IS A/A/O X2. PT IS ON 2 L O2 VIA NC SATING 97%. . PATIENT HAS URINAL. YELLOW, URINE OF 500 CC PT HAS R AC 18 MIDLINE G S/L. SAFETY MEASURES IN PLACE BED AT LOWEST POSITION AND LOCKED, CALL LIGHT WITH IN REACH, SIDE RAILS UPX2, BED ALARM IS ON. WILL ENDORSE TO WATER RESOURCES PROJECT MANAGER FOR LOUIS.
--- NOTE | 2019-10-29 19:30 | NUR ---
RN OPENING NOTES: RECEIVED PT A/OX1-2. PATIENT IN BED RESTING COMFORTABLY. PATIENT IN NO S/SX OF ACUTE DISTRESS. NO SOB NOTED. PATIENT'S BREATHING IS EVEN AND UNLABORED. PATIENT IS ON 2L OF OXYGEN VIA NC; TOLERATING WELL. NOTED IV SITE ON R UA MIDLINE #18 ; PATENT IN INTACT,NO S/S OF INFECTION OR INFILTRATION.; WITH IVF OF D5NS @100ML/HR. PT ON TUBE FEEDING VIA NGT (GLUCERNA 1.2) @30ML/HR; PT ABLE TO TOLERATE. BRISCOE CATH IN PLACE, WITH MODERATE MAURICE COLORED URINE OUTPUT NOTED. PATIENT HAS A SITTER ON BEDSIDE. SAFETY MEASURES HAVE BEEN PROVIDED AND IMPLEMENTED. PATIENT BED ALARM IS ON. HEAD OF BED ELEVATED. BED IS LOCKED, IN LOWEST POSITION AND SIDE RAILS UP. CALL LIGHT WITHIN REACH OF THE PATIENT. APPROPRIATE PRECAUTIONS IN PLACE. WILL CONTINUE TO MONITOR AND REASSESS FOR ANY CHANGES.
[2019-10-29 20:00] VITALS: BP 126/73
[2019-10-30] MEDS: IV D5/0.45 NACL 1,000 ML IV PRN (01:00)
[2019-10-30 06:00] VITALS: BP 124/75
[2019-10-30 08:00] VITALS: BP 122/72
[2019-10-30] MEDS: DEXAMETHASONE 4 MG TABLET PO SCH ×3 (09:30→17:37)
[2019-10-30] MEDS: PANTOPRAZOLE 40 MG VIAL IV SCH (09:30)
[2019-10-30] MEDS: LEVETIRACETAM SOL (5 ML) 100 MG/ML UDC PO SCH ×2 (09:30→20:17)
[2019-10-30] MEDS: CEFEPIME 2 GM in IV D5W 100 ML IV SCH ×2 (09:30→20:18)
[2019-10-30] MEDS: DAKINS QUARTER STRENGTH (0.125%) 480 ML BOTTLE TOP SCH (09:31)
[2019-10-30] MEDS: BRIMONIDINE TARTRATE OPHT SOLN 5 ML BOTTLE EACHEYE SCH ×3 (09:31→17:00)
[2019-10-30] MEDS: AMMONIUM LACTATE 227 GM BOTTLE TP SCH ×2 (09:31→17:00)
[2019-10-30] MEDS: TIMOLOL 0.5% SOLN OPHTH 5 ML BOTTLE EACHEYE SCH ×2 (09:32→17:00)
[2019-10-30] MEDS: DORZOLAMIDE OPTH 2% 10 ML BOTTLE EACHEYE SCH ×2 (09:32→17:00)
[2019-10-30] MEDS: DIGOXIN 0.125 MG TABLET PO SCH (13:00)
--- NOTE | 2019-10-30 14:13 | NUR ---
RN OPENING NOTE: Received patient sleeping in bed. Easily awakens and alert, oriented x2. With cont. 02 via NC @ saturation of 96%. No SOB and not in respiratory distress. NGTube via left nare in place, patent and intact with feeding of Glucerna 1.2 currently @ 30mls/hr and being tolerated well. IV site clean, dry, patent and intact. Patient with Zavala catheter and draining nydia yellow urine. Patient noted with skin issues. No pain noted on patient. Call light in reach. Bed locked, low and at semi-hobbs's position. Side rails up x3. Safety ensured and observed. Will continue to monitor.
[2019-10-30 16:00] VITALS: BP 117/76
[2019-10-30] MEDS: LORAZEPAM INJ 2 MG/ML VIAL IV PRN (17:40)
[2019-10-30] MEDS: GLUCERNA 1.2 1,000 ML BOTTLE GT PRN (17:43)
--- NOTE | 2019-10-30 18:00 | NUR ---
RN note: Patient was seen by providers on shift. Dr. Nelson, Dr. Elizabeth for Bilateral lower ext debridement, Nithya Sousa for assessment and scheduling of sacral wound debridement. Dr. Martinez for possible PEG/Gtube placement and Dr. Su for onco consult. Issue had arose regarding patient's ability to give consent. Patient is alert, awake and oriented x3. Able to give consent verbally but cannot sign due to current condition and does not have any contacts listed on face sheet. Per Mouna, Stippler, patient will be seen by Dr. Henry tomorrow for bioethics.
--- NOTE | 2019-10-30 18:55 | NUR ---
RN CLOSING NOTE: No acute changes noted on shift. Patient remains in bed. Awake, alert and oriented x3. With cont. 02 via NC @ saturation of 99%. No SOB and not in respiratory distress. NGTube via left nare in place, patent and intact with feeding of Glucerna 1.2 currently @ 30mls/hr and being tolerated well. IV site clean, dry, patent and intact. Patient with Zavala catheter and draining nydia yellow urine. No pain noted on patient. Call light in reach. Bed locked, low and at semi-hobbs's position. Side rails up x3. Due medications given. Treatment given as ordered. Will endorse to oncoming shift for LOUIS.
--- NOTE | 2019-10-30 19:11 | NUR ---
rn note: report given to Mark. Papa RN
[2019-10-30 20:00] VITALS: BP 131/56
[2019-10-30] MEDS: ENOXAPARIN SODIUM 40 MG/0.4 ML DISP.SYRIN SQ SCH (20:12)
--- NOTE | 2019-10-30 20:13 | NUR ---
RN NOTE LOVENOX 40MG SUBQ HELD. PT WITH SCHEDULED SERIAL DEBRIDEMENT TOMORROW. CONSENT ALREADY SIGNED.
[2019-10-31 04:00] VITALS: BP 128/74
--- NOTE | 2019-10-31 04:00 | NUR ---
RN NOTE PATIENT REFUSED BED BATH, SADAF CARE RENDERED, LINENS CHANGED.
--- NOTE | 2019-10-31 06:06 | NUR ---
RN NOTE NOTED NGT TO HAVE BEEN DISLODGED. FEEDING PAUSED. REINSERTED NGT, PLACEMENT VERIFIED VIA AUSCULTATION AND ASPIRATION. ORDERED STAT CHEST X-RAY TO VERIFY PLACEMENT.
[2019-10-31 06:32] LABS: BASOPHILS # (AUTO) 0.1 /CMM (0.0-0.2); BASOPHILS % (AUTO) 0.2 % (0.0-2.0); EOSINOPHILS % (AUTO) 0.2 % (0.0-6.0); HEMATOCRIT 36 % (39-51); HEMOGLOBIN 11.8 g/dL (13.5-17.5); LYMPHOCYTES # (AUTO) 1.3 /CMM (0.8-4.8); LYMPHOCYTES % (AUTO) 5.6 % (20.0-44.0); MEAN CORPUSCULAR HGB CONC 33 g/dl (31.0-36.0); MEAN CORPUSCULAR VOLUME 102 fL (80-96); MONOCYTES # (AUTO) 1.1 /CMM (0.1-1.30); MONOCYTES % (AUTO) 4.8 % (2.0-12.0); NEUTROPHILS # (AUTO) 20.4 /CMM (1.8-8.9); NEUTROPHILS % (AUTO) 89.2 % (43.0-81.0); PLATELET COUNT (AUTO) 212 /CMM (150-450); RED BLOOD CELL COUNT(AUTO) 3.53 MIL/uL (4.5-6.0); WHITE BLOOD COUNT (AUTO) 22.8 K/uL (4.3-11.0)
--- NOTE | 2019-10-31 06:37 | NUR ---
RN NOTE STAT CHEST X-RAY RESULTED SHOWING THAT NGT IS IN PLACE. TUBE FEEDING RESUMED AT 50CC/HOUR.
[2019-10-31] MEDS ORDERED: SILVER NITRATE APPLICATOR 1 EA BOX TP ONE (07:00)
[2019-10-31] MEDS ORDERED: LIDOCAINE 1%-EPI 1:100,000 20 ML VIAL TP ONE (07:00)
[2019-10-31 07:02] LABS: ALBUMIN 2.1 g/dL (3.4-5.0); BILIRUBIN,TOTAL 2.3 mg/dL (0.2-1.0); CALCIUM, SERUM 8.6 mg/dL (8.5-10.1); CREATININE 0.8 mg/dL (0.6-1.3); MAGNESIUM 2.1 mg/dL (1.8-2.4); PHOSPHORUS 3.2 mg/dL (2.5-4.9); POTASSIUM 3.4 mmol/L (3.5-5.1); TOTAL PROTEIN, SERUM 5.6 g/dL (6.4-8.2)
[2019-10-31 08:00] VITALS: BP 133/67
--- NOTE | 2019-10-31 08:00 | NUR ---
RN OPENING NOTES RECEIVED PT. IN BED. NO ACUTE DISTRESS NOTED. PT. A&OX1-2, WITH CONFUSION. PT. ON 2L O2 VIA NC, SATURATING WELL AT 99%. P5. NG TUBE IN PLACE, CHECKED FOR PLACEMENT, FLUSHED WELL. PT. KWESI MIDLINE INTACT, PATENT, FLUSHED WELL. PT. SAFETY MAINTAINED. CALL LIGHT WITHIN REACH. WILL CONTINUE TO MONITOR.
[2019-10-31] MEDS ORDERED: POTASSIUM CHLORIDE 20 MEQ POWDER PACKET GT SCH (08:30)
[2019-10-31] MEDS: PANTOPRAZOLE 40 MG/PACK PACK GT SCH (08:42)
[2019-10-31] MEDS: CEFEPIME 2 GM in IV D5W 100 ML IV SCH ×2 (08:42→20:42)
[2019-10-31] MEDS: LEVETIRACETAM SOL (5 ML) 100 MG/ML UDC PO SCH ×2 (08:42→20:41)
[2019-10-31] MEDS: DEXAMETHASONE 4 MG TABLET PO SCH ×3 (08:42→16:56)
[2019-10-31] MEDS: TIMOLOL 0.5% SOLN OPHTH 5 ML BOTTLE EACHEYE SCH ×2 (09:00→16:55)
[2019-10-31] MEDS: BRIMONIDINE TARTRATE OPHT SOLN 5 ML BOTTLE EACHEYE SCH ×3 (09:00→16:54)
[2019-10-31] MEDS: DORZOLAMIDE OPTH 2% 10 ML BOTTLE EACHEYE SCH ×2 (09:00→16:55)
[2019-10-31] MEDS: AMMONIUM LACTATE 227 GM BOTTLE TP SCH ×2 (09:15→16:56)
[2019-10-31] MEDS: DAKINS QUARTER STRENGTH (0.125%) 480 ML BOTTLE TOP SCH (09:16)
[2019-10-31 09:43] LABS: BAND % (MANUAL) 1 % (0.0-5.0); LYMPHOCYTES % (MANUAL) 1 % (16-48); METAMYELOCYTES % 1 % (0-0); MONOCYTES % (MANUAL) 3 % (0-11.0); MYELOCYTES % 2 % (0-0); NEUTROPHILS % (MANUAL) 92 (42-76)
--- NOTE | 2019-10-31 09:48 | NUR ---
PATIENT ALERT ONLY X1,UNABLE TO GIVE CONSENT FOR SERIAL DEBRIDEMENT,ELIZABET SURGEON MADE AWARE,PRIMARY MD DR. DOWNEY NOTIFIED .DR. MCDANIEL DID BIOETHICS ON PATIENT OK TO PROCEED WITH PEG. DR. KRUGER MADE AWARE.WILL CONTINUE TO FOLLOW UP.
[2019-10-31 12:00] VITALS: BP 125/61
[2019-10-31] MEDS: DIGOXIN 0.125 MG TABLET PO SCH (12:39)
--- NOTE | 2019-10-31 16:06 | NUR ---
MS RN NOTES RECEIVED A CALL FROM DR. KRUGER, PER MD PATIENT SCHEDULED TO HAVE PEG PLACEMENT IN AM. NPO AT MIDNIGHT, HOLD LOVENOX AND 2 PHYSICIAN CONSENT FOR PROCEDURE. ENDORSED ACCORDINGLY.
[2019-10-31 16:14] VITALS: BP 140/81
--- NOTE | 2019-10-31 18:43 | NUR ---
RN NOTE ELIANE SANCHEZ CAME IN FOR WOUND DEBRIDEMENT ORDERED. DAKIN'S SOLUTION, LIDOCAINE, AND SILVER NITRATE APPLICATOR USED ORDERED FOR WOUND DEBRIDEMENT. PT. STABLE, NO ACUTE DISTRESS NOTED.
--- NOTE | 2019-10-31 19:33 | NUR ---
RN CLOSING NOTE PT. IN BED. NO ACUTE DISTRESS NOTED. PT. A&OX1-2, WITH CONFUSION. PT. ON 2L O2 VIA NC, SATURATING WELL AT 99%. P5. NG TUBE IN PLACE, CHECKED FOR PLACEMENT, FLUSHED WELL. PT. KWESI MIDLINE INTACT, PATENT, FLUSHED WELL. PT. SAFETY MAINTAINED. CALL LIGHT WITHIN REACH. ENDORSED PLAN OF CARE TO ONCOMING NURSE FOR CONTINUITY OF CARE
--- NOTE | 2019-10-31 19:37 | NUR ---
MS RN NOTES PATIENT RECEIVED IN BED RESTING COMFORTABLY, ALERT AND ORIENTED 1-2. ON NASAL CANNULA 2L, WITH NO SIGNS OF RESPIRATORY DISTRESS AT THIS TIME, WITH EVEN NON-LABORED BREATHING, AND NO SOB NOTED. IV ACCESS ON RIGHT UPPER ARM, MIDLINE, INTACT AND PATENT. SKIN WARM AND DRY TO TOUCH. NASOGASTRIC TUBE IN PLACE. BRISCOE CATHETER IN PLACE, WITH URINE OUTPUT. SAFETY PRECAUTIONS IMPLEMENTED WITH BED LOCKED, BED IN THE LOWEST POSITION, BILATERAL SIDE RAILS UP, BED ALARM ON, AND CALL LIGHT WITHIN EASY REACH OF THE PATIENT. WILL CONTINUE TO MONITOR PATIENT.
[2019-10-31 20:00] VITALS: BP 143/77
[2019-10-31] MEDS: ENOXAPARIN SODIUM 40 MG/0.4 ML DISP.SYRIN SQ SCH (20:42)
--- NOTE | 2019-10-31 20:42 | NUR ---
MS RN NOTES PATIENT HAS SCHEDULED EGD AND PEG PLACEMENT IN AM. INFORMED BREWERY PUMPER HOSPITALIST, CARYN PENA, IN WHICH PATIENT HAS SCHEDULE LOVENOX 40mg SQ AT 2100. PER HOSPITALIST HOLD LOVENOX DOSE, AND CHARGE NURSE MADE AWARE WELL. WILL CONTINUE TO MONITOR PATIENT.
[2019-11-01 03:34] VITALS: BP 141/79
[2019-11-01] MEDS: LORAZEPAM INJ 2 MG/ML VIAL IV PRN (03:34)
--- NOTE | 2019-11-01 03:34 | NUR ---
MS RN NOTES PATIENT WAS RESTLESS, AWAKE, AND MUMBLING "OH MY GOD." PATIENT TRIED TO REMOVED NASOGASTRIC TUBE. CALM PATIENT DOWN AND REORIENTED. AUSCULTATED AND VERIFIED PLACEMENT OF NASOGASTRIC TUBE WITH ANOTHER RN. ADMINISTERED PRN IV ATIVAN, 0.5mg. VITAL SIGNS 141/79 HEART RATE 69, SPO2 100%, RESPIRATORY RATE 20. WILL CONTINUE TO MONITOR PATIENT.
--- NOTE | 2019-11-01 06:25 | NUR ---
MS RN NOTES PATIENT IN BED SLEEPING, EASILY AWAKEN BY LIGHT TOUCH AND NAME. ON NASAL CANNULA 2L, NO SIGNS OF RESPIRATORY DISTRESS NOTED, WITH EVEN NON-LABORED BREATHING. NASOGASTRIC TUBE IN PLACE. IV ACCESS INTACT AND PATENT ON RIGHT UPPER ARM, MIDLINE. BRISCOE CATHETER IN PLACE WITH YELLOW URINE OUTPUT FLOWING BY GRAVITY. SAFETY PRECAUTIONS IMPLEMENTED WITH BED LOCKED, BED IN THE LOWEST POSITION, BILATERAL SIDE RAILS UP, BED ALARM ON, AND CALL LIGHT WITHIN EASY REACH OF THE PATIENT. WILL ENDORSE PLAN OF CARE TO UPCOMING DAYSHIFT NURSE.
[2019-11-01 07:19] LABS: ALBUMIN 2.2 g/dL (3.4-5.0); BILIRUBIN,DIRECT 0.2 mg/dL (0.0-0.2); BILIRUBIN,TOTAL 0.8 mg/dL (0.2-1.0); TOTAL PROTEIN, SERUM 5.6 g/dL (6.4-8.2)
--- NOTE | 2019-11-01 07:49 | NUR ---
MS/RN OPENING NOTES RECEIVED PATIENT IN BED SLEEPING, EASILY AWAKEN BY LIGHT TOUCH AND NAME. ON NASAL CANNULA 2L, NO SIGNS OF RESPIRATORY DISTRESS NOTED, WITH EVEN NON-LABORED BREATHING. NASOGASTRIC TUBE IN PLACE. IV ACCESS INTACT AND PATENT ON RIGHT UPPER ARM, MIDLINE. BRISCOE CATHETER IN PLACE. SAFETY PRECAUTIONS IMPLEMENTED WITH BED LOCKED, BED IN THE LOWEST POSITION, BILATERAL SIDE RAILS UP, BED ALARM ON, AND CALL LIGHT WITHIN EASY REACH. WILL CONTINUE TO MONITOR.
[2019-11-01 08:00] VITALS: BP 125/74
[2019-11-01 08:02] LABS: CALCIUM, SERUM 8.2 mg/dL (8.5-10.1); CREATININE 0.7 mg/dL (0.6-1.3); MAGNESIUM 1.9 mg/dL (1.8-2.4); PHOSPHORUS 3.7 mg/dL (2.5-4.9); POTASSIUM 3.8 mmol/L (3.5-5.1)
[2019-11-01] MEDS: LEVETIRACETAM SOL (5 ML) 100 MG/ML UDC PO SCH ×2 (09:00→20:50)
[2019-11-01] MEDS: DEXAMETHASONE 4 MG TABLET PO SCH ×3 (09:00→17:51)
[2019-11-01] MEDS: PANTOPRAZOLE 40 MG/PACK PACK GT SCH (09:00)
[2019-11-01] MEDS: DORZOLAMIDE OPTH 2% 10 ML BOTTLE EACHEYE SCH ×2 (09:12→17:57)
[2019-11-01] MEDS: TIMOLOL 0.5% SOLN OPHTH 5 ML BOTTLE EACHEYE SCH ×2 (09:12→17:57)
[2019-11-01] MEDS: AMMONIUM LACTATE 227 GM BOTTLE TP SCH ×2 (09:13→17:59)
[2019-11-01] MEDS: BRIMONIDINE TARTRATE OPHT SOLN 5 ML BOTTLE EACHEYE SCH ×3 (09:14→17:58)
[2019-11-01] MEDS: DAKINS QUARTER STRENGTH (0.125%) 480 ML BOTTLE TOP SCH (09:14)
[2019-11-01] MEDS: CEFEPIME 2 GM in IV D5W 100 ML IV SCH ×2 (09:38→20:47)
[2019-11-01 11:19] LABS: BASOPHILS # (AUTO) 0.1 /CMM (0.0-0.2); BASOPHILS % (AUTO) 0.3 % (0.0-2.0); EOSINOPHILS % (AUTO) 1.1 % (0.0-6.0); HEMATOCRIT 31 % (39-51); HEMOGLOBIN 10.3 g/dL (13.5-17.5); LYMPHOCYTES # (AUTO) 1.2 /CMM (0.8-4.8); LYMPHOCYTES % (AUTO) 6.5 % (20.0-44.0); MEAN CORPUSCULAR HGB CONC 33 g/dl (31.0-36.0); MEAN CORPUSCULAR VOLUME 103 fL (80-96); MONOCYTES # (AUTO) 1.1 /CMM (0.1-1.30); MONOCYTES % (AUTO) 6.1 % (2.0-12.0); NEUTROPHILS # (AUTO) 15.4 /CMM (1.8-8.9); PLATELET COUNT (AUTO) 204 /CMM (150-450); RED BLOOD CELL COUNT(AUTO) 3.05 MIL/uL (4.5-6.0)
[2019-11-01] MEDS ORDERED: PHYTONADIONE INJ 10 MG in IV D5W 50 ML IV ONE (12:30)
[2019-11-01] MEDS: DIGOXIN 0.125 MG TABLET PO SCH (13:00)
--- NOTE | 2019-11-01 15:24 | NUR ---
MS/RN NOTES DR. DOWNEY ORDER CONTINUE NGT FEEDING OF GLUCERNA 1.2 AT 40ML/HR AND NPO POST MIDNIGHT. NOTED AND CARRIED OUT.
[2019-11-01] MEDS: GLUCERNA 1.2 1,000 ML BOTTLE GT PRN (15:29)
--- NOTE | 2019-11-01 15:39 | NUR ---
M/RN NOTES PATIENTS WITH SIGN AND SYMPTOMS OF ANXIETY. LORAZEPAM 0.5 MG IV WAS GIVEN. WILL CONTINUE TO MONITOR.
[2019-11-01 16:00] VITALS: BP 130/86
--- NOTE | 2019-11-01 19:25 | NUR ---
MS/RN CLOSING NOTES PATIENT IN BED SLEEPING, EASILY AWAKEN BY LIGHT TOUCH AND NAME. ON NASAL CANNULA 2L, NO SIGNS OF RESPIRATORY DISTRESS NOTED, WITH EVEN NON-LABORED BREATHING. NASOGASTRIC TUBE IN PLACE. IV ACCESS INTACT AND PATENT ON RIGHT UPPER ARM, MIDLINE. BRISCOE CATHETER IN PLACE. SAFETY PRECAUTIONS IMPLEMENTED WITH BED LOCKED, BED IN THE LOWEST POSITION, BILATERAL SIDE RAILS UP, BED ALARM ON, AND CALL LIGHT WITHIN EASY REACH. PATIENT IS FOR EGD TOMORROW AT 1 PM, CONSENT WAS SIGN BY DR. DOWNEY AND ATTACH TO CHART. WILL ENDORSED TO MICROMATIC HONE OPERATOR.
[2019-11-01 20:00] VITALS: BP 119/60
--- NOTE | 2019-11-01 20:00 | NUR ---
MS RN OPENING NOTE: Received patient in bed, sleeping comfortably, easily arousable by name and touch. On 2L Nasal canula. Patient tolerating Oxygen. No SOB, breathing is unlabored and equal. KWESI midline patent. No redness or infiltration. NG tube in place. Safety precaution in place; bed in lowest position, alarm is on, brakes are on, and call light within reach. Will continue plan of care.
[2019-11-01] MEDS: ENOXAPARIN SODIUM 40 MG/0.4 ML DISP.SYRIN SQ SCH (21:00)
--- NOTE | 2019-11-01 21:14 | NUR ---
MS RN NOTE: Patient has an EGD procedure tomorrow, 11/02/19. Per Willy GARCIA, hold TappIn.
--- NOTE | 2019-11-02 06:47 | NUR ---
MS RN CLOSING NOTE: Patient in bed sleeping comfortably, easily arousable. On 2L Nasal canula. Patient tolerating Oxygen. No SOB, breathing is unlabored and equal. KWESI midline patent. No redness or infiltration. NG tube in place. Safety precaution in place; bed in lowest position, alarm is on, brakes are on, and call light within reach. Will endorse to next shift.
--- NOTE | 2019-11-02 07:28 | NUR ---
MS/RN OPENING NOTES RECEIVED PATIENT IS IN BED SLEEPING, EASILY AWAKEN BY LIGHT TOUCH AND NAME. ON NASAL CANNULA 2L, NO SIGNS OF RESPIRATORY DISTRESS NOTED, WITH EVEN NON-LABORED BREATHING. NASOGASTRIC TUBE IN PLACE. IV ACCESS INTACT AND PATENT ON RIGHT UPPER ARM, MIDLINE. BRISCOE CATHETER IN PLACE WITH YELLOW URINE OUTPUT FLOWING BY GRAVITY. SAFETY PRECAUTIONS IMPLEMENTED WITH BED LOCKED, BED IN THE LOWEST POSITION, BILATERAL SIDE RAILS UP, BED ALARM ON, AND CALL LIGHT WITHIN EASY REACH OF THE PATIENT. WILL CONTINUE TO MONITOR.
[2019-11-02 08:00] VITALS: BP 121/72
[2019-11-02] MEDS: LEVETIRACETAM SOL (5 ML) 100 MG/ML UDC PO SCH ×2 (08:12→20:44)
[2019-11-02] MEDS: PANTOPRAZOLE 40 MG/PACK PACK GT SCH (08:12)
[2019-11-02] MEDS: DEXAMETHASONE 4 MG TABLET PO SCH ×3 (08:12→16:49)
[2019-11-02 08:28] LABS: BASOPHILS % (AUTO) 0.2 % (0.0-2.0); EOSINOPHILS % (AUTO) 0.9 % (0.0-6.0); HEMATOCRIT 32 % (39-51); HEMOGLOBIN 10.4 g/dL (13.5-17.5); LYMPHOCYTES # (AUTO) 1.1 /CMM (0.8-4.8); LYMPHOCYTES % (AUTO) 7.3 % (20.0-44.0); MEAN CORPUSCULAR HGB CONC 33 g/dl (31.0-36.0); MEAN CORPUSCULAR VOLUME 103 fL (80-96); MONOCYTES # (AUTO) 0.9 /CMM (0.1-1.30); MONOCYTES % (AUTO) 5.8 % (2.0-12.0); NEUTROPHILS # (AUTO) 13.2 /CMM (1.8-8.9); NEUTROPHILS % (AUTO) 85.8 % (43.0-81.0); PLATELET COUNT (AUTO) 195 /CMM (150-450); WHITE BLOOD COUNT (AUTO) 15.4 K/uL (4.3-11.0)
[2019-11-02] MEDS: CEFEPIME 2 GM in IV D5W 100 ML IV SCH ×2 (09:07→20:44)
[2019-11-02] MEDS: BRIMONIDINE TARTRATE OPHT SOLN 5 ML BOTTLE EACHEYE SCH ×3 (09:08→16:48)
[2019-11-02] MEDS: DORZOLAMIDE OPTH 2% 10 ML BOTTLE EACHEYE SCH ×2 (09:11→16:49)
[2019-11-02] MEDS: DAKINS QUARTER STRENGTH (0.125%) 480 ML BOTTLE TOP SCH (09:12)
[2019-11-02] MEDS: TIMOLOL 0.5% SOLN OPHTH 5 ML BOTTLE EACHEYE SCH ×2 (09:12→16:49)
[2019-11-02] MEDS: AMMONIUM LACTATE 227 GM BOTTLE TP SCH ×2 (09:14→16:49)
[2019-11-02 11:47] LABS: CALCIUM, SERUM 8.3 mg/dL (8.5-10.1); CREATININE 0.8 mg/dL (0.6-1.3); PHOSPHORUS 3.9 mg/dL (2.5-4.9); POTASSIUM 4.1 mmol/L (3.5-5.1)
[2019-11-02] MEDS: DIGOXIN 0.125 MG TABLET PO SCH (13:00)
--- NOTE | 2019-11-02 13:05 | NUR ---
MS/RN NOTES PATIENT IS OUT IN THE UNIT FOR PEG PLACEMENT AND EGD CLAIMS CUSTOMER SERVICE REPRESENTATIVE BY NAIRY OR NURSE. PATIENT V/S TAKEN AND RECORDED BP 117/73 HR 51 SAO2 100% TEMP 97.4. NO SIGN OF RESPIRATORY DISTRESS NOTED.
--- NOTE | 2019-11-02 14:36 | NUR ---
MS/RN NOTES PATIENT CAME BACK IN THE UNIT FROM SURGERY. RECEIVED REPORT FROM JAYLIN DIRECTOR OF WEB MARKETING, USE PEG FOR WATER MEDS IN 4 HOURS, USE PEG FOR TUBE FEEDING TOMORROW MORNING AND RESUME PREVIOUS MEDICATION NOTED AND CARRIED OUT. PATIENT V/S BP 124/60 HR 53 SAO2 100% RR 18. WILL CONTINUE TO MONITOR.
[2019-11-02 16:00] VITALS: BP 123/61
--- NOTE | 2019-11-02 16:49 | NUR ---
MS/RN NOTES PATIENT IS NOT YET IN THE REQUIRED 4 HOURS ORDER TO TAKE G TUBE INPUT MEDICATIONS STILL WITH HELD AT THIS TIME. WILL CONTINUE TO MONITOR.
--- NOTE | 2019-11-02 17:22 | NUR ---
MS/RN NOTES PATIENT WITH SIGN AND SYMPTOM OF PAIN NOTED, MD IS AWARE. ZAIDA GONZALEZ (AIDS SOCIAL WORKER) ORDER MORPHINE 1 MG IVP EVERY 4 HOURS PRN. NOTED AND CARRIED OUT. WILL CONTINUE TO MONITOR.
--- NOTE | 2019-11-02 19:43 | NUR ---
MS/RN CLOSING NOTES PATIENT IS IN BED SLEEPING, EASILY AWAKEN BY LIGHT TOUCH AND NAME. ON NASAL CANNULA 2L, NO SIGNS OF RESPIRATORY DISTRESS NOTED, WITH EVEN NON-LABORED BREATHING. NASOGASTRIC TUBE IN PLACE. IV ACCESS INTACT AND PATENT ON RIGHT UPPER ARM, MIDLINE AND LEFT UPPER MIDLINE. BRISCOE CATHETER IN PLACE WITH YELLOW URINE OUTPUT FLOWING BY GRAVITY. SAFETY PRECAUTIONS IMPLEMENTED WITH BED LOCKED, BED IN THE LOWEST POSITION, BILATERAL SIDE RAILS UP, BED ALARM ON, AND CALL LIGHT WITHIN EASY REACH OF THE PATIENT. SIGN AND SYMPTOM OF PAIN NOTED. PAIN MEDICATION WILL ENDORSED TO AEROSPACE ENGINEER FOR [place].
[2019-11-02 20:00] VITALS: BP 135/66
--- NOTE | 2019-11-02 20:00 | NUR ---
MS RN OPENING NOTE: Received patient sleeping in bed comfortably, easily arousable by touch and name. Patient on 2L Nasal canula, tolerating oxygen well. No SOB. Breathing unlabored and even. Zavala patient. KWESI and MAYURI midline are patent. No signs of redness or infiltration. Abdominal binder intact, dry and clean. Safety precaution in place. Bed in lowest position, bed is locked, alarm is on, side rails x2 are up, and call light is within reach. Will continue plan of care.
[2019-11-02] MEDS: ENOXAPARIN SODIUM 40 MG/0.4 ML DISP.SYRIN SQ SCH (21:00)
--- NOTE | 2019-11-02 21:06 | NUR ---
MS RN NOTE: Patient post EGD with PEG placement and has Lovenox scheduled. Made epic MD aware. Epic ordered to hold medication. Repeat back order and carried out.
--- NOTE | 2019-11-03 07:09 | NUR ---
MS RN CLOSING NOTE: Patient sleeping in bed, easily arousable by touch and name. No SOB. Breathing unlabored and even. Safety precaution in place. Bed in lowest position, bed is locked, alarm is on, side rails x2 are up, and call light is within reach. Will endorse to next shift.
--- NOTE | 2019-11-03 07:30 | NUR ---
MS RN OPENING NOTE RECEIVED PATIENT IS IN BED SLEEPING, AROUSABLE AND RESPONSIVE TO VERBAL AND TACTILE STIMULI. NO CARDIAC OR RESPIRATORY DISTRESS NOTED. NO SOB NOTED. SATURATING WELL ON 2L/MIN VIA NC. BREATHING IS EVEN AND UNLABORED. IV ACCESS INTACT AND PATENT ON RIGHT UPPER ARM, MIDLINE AND LEFT UPPER MIDLINE. BOTH LINES INTACT AND PATENT AND FLUSHING WELL. BRISCOE CATHETER PRESENT AND IN PLACE. INTACT AND PATENT AND DRAINING WITH CLEAR YELLOW URINE. SAFETY PRECAUTIONS IN PLACE. BED LOCKED AND IN LOW POSITION., BILATERAL SIDE RAILS UP, BED ALARM ON, AND CALL LIGHT WITHIN EASY REACH OF THE PATIENT. WILL CONT TO MONITOR.
[2019-11-03] MEDS: MORPHINE SULFATE INJ 2 MG/ML DISP.SYRIN IVP PRN ×2 (07:59→13:36)
[2019-11-03 08:00] VITALS: BP 114/48
[2019-11-03 08:08] LABS: BASOPHILS # (AUTO) 0.1 /CMM (0.0-0.2); BASOPHILS % (AUTO) 0.6 % (0.0-2.0); EOSINOPHILS % (AUTO) 1.9 % (0.0-6.0); HEMATOCRIT 31 % (39-51); HEMOGLOBIN 10.3 g/dL (13.5-17.5); LYMPHOCYTES # (AUTO) 1.2 /CMM (0.8-4.8); LYMPHOCYTES % (AUTO) 9.4 % (20.0-44.0); MEAN CORPUSCULAR HGB CONC 33 g/dl (31.0-36.0); MEAN CORPUSCULAR VOLUME 103 fL (80-96); MONOCYTES # (AUTO) 0.9 /CMM (0.1-1.30); MONOCYTES % (AUTO) 6.8 % (2.0-12.0); NEUTROPHILS # (AUTO) 10.3 /CMM (1.8-8.9); NEUTROPHILS % (AUTO) 81.3 % (43.0-81.0); PLATELET COUNT (AUTO) 199 /CMM (150-450); RED BLOOD CELL COUNT(AUTO) 3.02 MIL/uL (4.5-6.0); WHITE BLOOD COUNT (AUTO) 12.7 K/uL (4.3-11.0)
[2019-11-03] MEDS: PANTOPRAZOLE 40 MG/PACK PACK GT SCH (08:24)
[2019-11-03] MEDS: LEVETIRACETAM SOL (5 ML) 100 MG/ML UDC PO SCH ×2 (08:24→21:56)
[2019-11-03] MEDS: DEXAMETHASONE 4 MG TABLET PO SCH ×3 (08:24→17:07)
[2019-11-03] MEDS: DAKINS QUARTER STRENGTH (0.125%) 480 ML BOTTLE TOP SCH (08:25)
[2019-11-03] MEDS: AMMONIUM LACTATE 227 GM BOTTLE TP SCH ×2 (08:26→17:10)
[2019-11-03] MEDS: BRIMONIDINE TARTRATE OPHT SOLN 5 ML BOTTLE EACHEYE SCH ×3 (08:28→17:09)
[2019-11-03] MEDS: DORZOLAMIDE OPTH 2% 10 ML BOTTLE EACHEYE SCH ×2 (08:28→17:09)
[2019-11-03] MEDS: TIMOLOL 0.5% SOLN OPHTH 5 ML BOTTLE EACHEYE SCH ×2 (08:29→17:10)
[2019-11-03] MEDS: CEFEPIME 2 GM in IV D5W 100 ML IV SCH ×2 (08:31→20:34)
[2019-11-03 08:38] LABS: BAND % (MANUAL) 3 % (0.0-5.0); EOSINOPHILS % (MANUAL) 2 % (0-4); LYMPHOCYTES % (MANUAL) 12 % (16-48); MONOCYTES % (MANUAL) 4 % (0-11.0); NEUTROPHILS % (MANUAL) 79 (42-76)
[2019-11-03] MEDS ORDERED: GLUCERNA 1.2 1,000 ML BOTTLE GT PRN (09:07)
--- NOTE | 2019-11-03 09:30 | NUR ---
GT FEEDING GT FEEDING STARTED THIS AM. WITH GLUCERNA 1.2 AT 20ML/HR. WILL RECHECK LATER FOR GASTRIC RESIDUALS AND INCREASE TOLERATED.
[2019-11-03 10:05] LABS: CALCIUM, SERUM 8.5 mg/dL (8.5-10.1); CREATININE 0.8 mg/dL (0.6-1.3); POTASSIUM 3.4 mmol/L (3.5-5.1)
[2019-11-03] MEDS ORDERED: POTASSIUM CHLORIDE 20 MEQ POWDER PACKET GT SCH (12:00)
[2019-11-03] MEDS: DIGOXIN 0.125 MG TABLET PO SCH (12:14)
--- NOTE | 2019-11-03 13:30 | NUR ---
GASTRIC RESIDUAL PT CHECKED FOR GASTRIC RESIDUAL 4 HRS AFTER FEEDING STARTED, PT NOTED WITH 120ML GASTRIC RESIDUAL. FEEDING CONTINUED.
--- NOTE | 2019-11-03 14:30 | NUR ---
GT FEEDING FEEDING INCREASED TO 30ML/HR. GASTRIC RESIDUAL CHECKED, NOTED AT 60ML. FEEDING CONTINUED. NO S/S OF ASPIRATION NOTED. HOB ELEVATED >45 DEGREES.
[2019-11-03 16:00] VITALS: BP 129/60
--- NOTE | 2019-11-03 18:00 | NUR ---
GT FEEDING GASTRIC RESIDUALS CHECKED. PT NOTED WITH 60ML. GT FEEDIG INCREASED TO 40ML/HR. TOLERATING FEEDING WELL.
--- NOTE | 2019-11-03 18:29 | NUR ---
MS RN CLOSING NOTES PATIENT IS IN BED SLEEPING, AROUSABLE AND RESPONSIVE TO VERBAL AND TACTILE STIMULI. NO CARDIAC OR RESPIRATORY DISTRESS NOTED. NO SOB NOTED. SATURATING WELL ON 2L/MIN VIA NC. BREATHING IS EVEN AND UNLABORED. IV ACCESS INTACT AND PATENT ON RIGHT UPPER ARM, MIDLINE AND LEFT UPPER MIDLINE. BOTH LINES INTACT AND PATENT AND FLUSHING WELL. BRISCOE CATHETER PRESENT AND IN PLACE. INTACT AND PATENT AND DRAINING WITH CLEAR YELLOW URINE. SAFETY PRECAUTIONS IN PLACE. GTUBE SITE INTACT AND PATENT AND FLUSHING WELL. GLUCERNA CURRENTLY RUNNING AT 40ML/HR. WILL ENDORSE TO NEXT SHIFT TO CONT TO MONITOR RESIDUALS AND INCREASE WITH A GOAL OF 75ML/HR PT TOLERATES. SAFETY PRECAUTIONS IN PLACE. BED LOCKED AND IN LOW POSITION., BILATERAL SIDE RAILS UP, BED ALARM ON, AND CALL LIGHT WITHIN EASY REACH OF THE PATIENT. WILL ENDORSE TO NEXT SHIFT.
[2019-11-03 20:00] VITALS: BP 126/78
[2019-11-03] MEDS ORDERED: HYDROCODONE/APAP 5/325MG 1 EACH TABLET GT PRN (20:00)
--- NOTE | 2019-11-03 20:00 | NUR ---
RN NOTES RECEIVED PATIENT IN BED, ALERT AND AWAKE, 2LPM VIA NC, COMPLAINING OF PAIN WITH SLIGHTEST MOVEMENT, POST G TUBE PLACEMENT, SITE HAS DRIED DRAINAGE, ABDOMINAL BINDER IN PLACE, RESIDUAL CHECKED 100 ML, PUT BACK, REDUCED RATE OF FEEDING TO 30 ML, GOAL IS 75 ML/HR. BRISCOE CATHETER DRAINING WELL, HOB ELEVATED, KEPT SAFE, WILL CONTINUE TO MONITOR.
[2019-11-03 20:25] VITALS: BP 126/78
[2019-11-03] MEDS: ENOXAPARIN SODIUM 40 MG/0.4 ML DISP.SYRIN SQ SCH (21:58)
--- NOTE | 2019-11-03 23:00 | NUR ---
RN NOTES GT FEEDING AT 25 ML/HR IS 60 ML/HR, WILL INCREASE RATE APPROPRIATE TOWARDS GOAL
--- NOTE | 2019-11-04 06:02 | NUR ---
RN NOTES ALERT AND ORIENTED X1, 2LPM VIA NC, GENERALIZED PAIN, WITH NORCO VIA G TUBE. GLUCERNA 1.2, RATE AT START OF SHIFT 40 ML/HR, HAD 140 ML RESIDUAL, CHECKED X2, THEN REDUCED TO 25 ML/HR, DURING SHIFT WITH RESIDUAL OF 30 ML. INCREASED RATE TO 30 ML TOWARDS GOAL OF 75 ML/HR. PEG TUBE SITE DRY AND CLEAN, NO DRAINAGE, TURNING AND REPOSITIONING, HEELS ELEVATED, BRISCOE CATHETER DRAINING, WHEN CLEARED FOR DC WILL START ON LEVAQUIN VIA GTUBE X5 DAYS
[2019-11-04 06:33] LABS: BASOPHILS % (AUTO) 0.2 % (0.0-2.0); EOSINOPHILS % (AUTO) 1.5 % (0.0-6.0); HEMATOCRIT 36 % (39-51); HEMOGLOBIN 11.5 g/dL (13.5-17.5); LYMPHOCYTES # (AUTO) 1.1 /CMM (0.8-4.8); LYMPHOCYTES % (AUTO) 10.8 % (20.0-44.0); MEAN CORPUSCULAR HGB CONC 32 g/dl (31.0-36.0); MEAN CORPUSCULAR VOLUME 110 fL (80-96); MONOCYTES # (AUTO) 0.7 /CMM (0.1-1.30); MONOCYTES % (AUTO) 6.7 % (2.0-12.0); NEUTROPHILS # (AUTO) 8.5 /CMM (1.8-8.9); NEUTROPHILS % (AUTO) 80.8 % (43.0-81.0); PLATELET COUNT (AUTO) 191 /CMM (150-450); RED BLOOD CELL COUNT(AUTO) 3.31 MIL/uL (4.5-6.0); WHITE BLOOD COUNT (AUTO) 10.5 K/uL (4.3-11.0)
[2019-11-04 06:46] LABS: CREATININE 0.8 mg/dL (0.6-1.3); POTASSIUM 4.2 mmol/L (3.5-5.1)
--- NOTE | 2019-11-04 08:00 | NUR ---
MS/RN opening note Received patient in bed, AO x 1, able to responds all stimuli. Patient does no c/o chest pain or discomfort. Ski is warm to touch, kept clean/dry, intact mid line and new g tube, running 40 cc/hr at his time. Respiratory even and unlabored with oxygen at 2LPM. Keep bed in locked with elevated HOB for secure airway and aspiration precaution. Call light within in reach, will continue to monitor.
[2019-11-04 08:23] VITALS: BP 143/62
[2019-11-04 08:51] LABS: BAND % (MANUAL) 1 % (0.0-5.0); EOSINOPHILS % (MANUAL) 1 % (0-4); LYMPHOCYTES % (MANUAL) 10 % (16-48); METAMYELOCYTES % 2 % (0-0); MONOCYTES % (MANUAL) 8 % (0-11.0); MYELOCYTES % 5 % (0-0); NEUTROPHILS % (MANUAL) 73 (42-76)
[2019-11-04] MEDS: CEFEPIME 2 GM in IV D5W 100 ML IV SCH (08:56)
[2019-11-04] MEDS: DEXAMETHASONE 4 MG TABLET PO SCH ×3 (08:57→17:45)
[2019-11-04] MEDS: PANTOPRAZOLE 40 MG/PACK PACK GT SCH (08:57)
[2019-11-04] MEDS: LEVETIRACETAM SOL (5 ML) 100 MG/ML UDC PO SCH (08:57)
[2019-11-04] MEDS: DAKINS QUARTER STRENGTH (0.125%) 480 ML BOTTLE TOP SCH (08:58)
[2019-11-04] MEDS: AMMONIUM LACTATE 227 GM BOTTLE TP SCH ×2 (08:58→17:47)
[2019-11-04] MEDS: BRIMONIDINE TARTRATE OPHT SOLN 5 ML BOTTLE EACHEYE SCH ×3 (08:59→17:00)
[2019-11-04] MEDS: TIMOLOL 0.5% SOLN OPHTH 5 ML BOTTLE EACHEYE SCH ×2 (08:59→17:00)
[2019-11-04] MEDS: DORZOLAMIDE OPTH 2% 10 ML BOTTLE EACHEYE SCH ×2 (08:59→17:00)
[2019-11-04] MEDS ORDERED: LEVO500T75 GT (11:54)
[2019-11-04] MEDS ORDERED: PANT40SU2 GT (11:54)
[2019-11-04] MEDS ORDERED: NUT.237L45 GT (11:54)
[2019-11-04] MEDS ORDERED: Digoxin PO (11:54)
[2019-11-04] MEDS ORDERED: HYDR-3972 GT (11:54)
[2019-11-04] MEDS: DIGOXIN 0.125 MG TABLET PO SCH (12:43)
--- NOTE | 2019-11-04 15:15 | NUR ---
Patient going transfer to [facility], given report Yvette/RN.
[2019-11-04 16:12] VITALS: BP 114/59
--- NOTE | 2019-11-04 18:30 | NUR ---
2 micro lab analyst picked up patient and given report. Patient does no appears pain or discomfort, in stable condition. Wound picture taken and given dressing changed. V/S: bp-114/54, p-102, r- 18, t- 97.9, [id number]-275% with oxygen at 2LPM.
== END 2019-11-04 18:56 | DRG 853 ==
LOC: ER 09:36 → EDBD 09:36 → ICU 14:06 → TELE1 10-25 06:42 → MEDSG1 10-27 10:48 → MED 10-31 10:22
PROVIDERS: ADMIT Nurse Practitioner Acute Care; ATTEND Nurse Practitioner Acute Care
PROC: 05H933Z Insertion of Infusion Device into Right Brachial Vein, Percutaneous Approach (ICD-10-PCS; 2019-10-24)
PROC: 05H933Z Insertion of Infusion Device into Right Brachial Vein, Percutaneous Approach (ICD-10-PCS; 2019-10-30)
PROC: 0JB70ZZ Excision of Back Subcutaneous Tissue and Fascia, Open Approach (ICD-10-PCS; principal; 2019-10-31)
PROC: 0DH63UZ Insertion of Feeding Device into Stomach, Percutaneous Approach (ICD-10-PCS; 2019-11-02)
DX: A41.9 Sepsis, unspecified organism (principal); G93.41 Metabolic encephalopathy; L89.153 Pressure ulcer of sacral region, stage 3; N17.0 Acute kidney failure with tubular necrosis; D68.59 Other primary thrombophilia; E87.0 Hyperosmolality and hypernatremia; L97.929 Non-pressure chronic ulcer of unspecified part of left lower leg with unspecified severity; L97.919 Non-pressure chronic ulcer of unspecified part of right lower leg with unspecified severity; E87.1 Hypo-osmolality and hyponatremia; E87.2 Acidosis; D68.9 Coagulation defect, unspecified; C34.11 Malignant neoplasm of upper lobe, right bronchus or lung; C79.31 Secondary malignant neoplasm of brain; I48.91 Unspecified atrial fibrillation; E87.6 Hypokalemia; K44.9 Diaphragmatic hernia without obstruction or gangrene; K59.00 Constipation, unspecified; I12.9 Hypertensive chronic kidney disease with stage 1 through stage 4 chronic kidney disease, or unspecified chronic kidney disease; R13.10 Dysphagia, unspecified; N18.9 Chronic kidney disease, unspecified; Z79.899 Other long term (current) drug therapy; G40.909 Epilepsy, unspecified, not intractable, without status epilepticus; E86.1 Hypovolemia; E86.0 Dehydration; E83.39 Other disorders of phosphorus metabolism; E11.22 Type 2 diabetes mellitus with diabetic chronic kidney disease; D75.89 Other specified diseases of blood and blood-forming organs; K76.0 Fatty (change of) liver, not elsewhere classified; N40.0 Benign prostatic hyperplasia without lower urinary tract symptoms; H40.9 Unspecified glaucoma; S81.801A Unspecified open wound, right lower leg, initial encounter; X58.XXXA Exposure to other specified factors, initial encounter; Y92.9 Unspecified place or not applicable; E88.09 Other disorders of plasma-protein metabolism, not elsewhere classified; K82.8 Other specified diseases of gallbladder; L85.3 Xerosis cutis; D17.9 Benign lipomatous neoplasm, unspecified; D53.9 Nutritional anemia, unspecified; W18.30XA Fall on same level, unspecified, initial encounter; Y92.039 Unspecified place in apartment as the place of occurrence of the external cause; B96.89 Other specified bacterial agents as the cause of diseases classified elsewhere
CPT/HCPCS: 36410; 36415; 36600; 43246; 70450-TC; 71045-TC; 71250-TC; 74150-TC; 76705-TC; 80048-TC; 80053-TC; 80061-TC; 80076-TC; 80162-TC; 80202-TC; 80305; 81000-TC; 82140-TC; 82728-TC; 82784; 82962-TC; 83540-TC; 83605-TC; 83735-TC; 84100-TC; 84155; 84165; 84443-TC; 84484-TC; 85025-TC; 85610-TC; 85730-TC; 86334; 86850-TC; 87040-TC; 87070-TC; 87081-TC; 87086-TC; 87186-TC; 92526; 92611-TC; 93307-TC; 95819-TC; 97530-TC; A4216; A6253; A6403; C9113; G0378; G0480; J0690; J0692; J1160; J1650; J1953; J2060; J2270; J2704; J3370; J3430; J3480; J3490; J7030; J7040; J7042; J7050; J7060; J8540; U0003-CS

== ENCOUNTER 2020-01-24 10:38 | Inpatient (IN) | payer MEDICARE, OTHER ==
[~2020-01-24] VITALS: Ht 180.3 cm; Wt 77.1 kg
[~2020-01-24 10:38] MED LIST: ALFU10TA10 PO; BRIM5DRO2 EACHEYE; DEXA4TAB2 PO; DORZ10DR10 EACHEYE; Digoxin PO; HYDR-3972 GT; LEVE500T9 GT; LEVO500T23 GT; NUT.237L45 GT; PANT40SU2 GT; PIOG30TA10 PO; TRIA1TAB3 GT
--- NOTE | 2020-01-24 10:50 | NUR ---
BIB ra frm clinic c/o chest pain and rapid heart rate. Patient a/ox4, breathing even and unlabored, no sob noted, patient changed into a gown, attached to the telemetry monitor. Came in with an IV line from EMS but unable to flush, IV removed.
--- NOTE | 2020-01-24 11:00 | NUR ---
DR. DESAI AT BEDSIDE FOR EVAL
[2020-01-24 11:09] LABS: HEMOGLOBIN 15.9 g/dL (13.5-17.5); LYMPHOCYTES # (AUTO) 0.6 /CMM (0.8-4.8); LYMPHOCYTES % (AUTO) 4.9 % (20.0-44.0); MONOCYTES # (AUTO) 0.8 /CMM (0.1-1.30); NEUTROPHILS # (AUTO) 11.4 /CMM (1.8-8.9)
[2020-01-24 11:11] LABS: BASOPHILS % (AUTO) 0.4 % (0.0-2.0); EOSINOPHILS % (AUTO) 0.1 % (0.0-6.0); HEMATOCRIT 48 % (39-51); MEAN CORPUSCULAR HGB CONC 34 g/dl (31.0-36.0); MEAN CORPUSCULAR VOLUME 102 fL (80-96); MONOCYTES % (AUTO) 6.2 % (2.0-12.0); NEUTROPHILS % (AUTO) 88.4 % (43.0-81.0); PLATELET COUNT (AUTO) 133 /CMM (150-450); RED BLOOD CELL COUNT(AUTO) 4.67 MIL/uL (4.5-6.0); WHITE BLOOD COUNT (AUTO) 12.9 K/uL (4.3-11.0)
[2020-01-24 11:17] LABS: CALCIUM, SERUM 9.8 mg/dL (8.5-10.1); CARBON DIOXIDE 26 mmol/L (21-32); CHLORIDE 97 mmol/L (98-107); CREATININE 0.8 mg/dL (0.6-1.3); GLUCOSE 172 mg/dL (74-106); POTASSIUM 3.6 mmol/L (3.5-5.1); SODIUM SERUM 137 mmol/L (136-145); UREA NITROGEN, BLOOD 27 mg/dL (7-18)
--- NOTE | 2020-01-24 11:17 | NUR ---
Patient's urine sent to lab.
[2020-01-24] MEDS ORDERED: CHOL100040 GT (11:21)
[2020-01-24] MEDS ORDERED: MULT-447 GT (11:21)
[2020-01-24] MEDS ORDERED: OMEP20CA15 GT (11:21)
[2020-01-24] MEDS ORDERED: NUT.237L30 GT (11:21)
[2020-01-24] MEDS ORDERED: AMIN30LI24 GT (11:21)
[2020-01-24] MEDS ORDERED: DOXA2TAB GT (11:21)
[2020-01-24] MEDS ORDERED: ASCO-352 GT (11:21)
[2020-01-24] MEDS ORDERED: DIGO250T GT (11:21)
[2020-01-24] MEDS ORDERED: ASPIRIN 81 MG TAB.CHEW ONE (11:50)
[2020-01-24] MEDS ORDERED: DILTIAZEM HCL 25 MG IV ONE (11:50)
[2020-01-24] MEDS ORDERED: DILTIAZEM HCL 50 MG IV IV ONE (12:00)
[2020-01-24] MEDS ORDERED: ASPIRIN 81 MG TAB.CHEW PO ONE (12:00)
[2020-01-24] MEDS ORDERED: IV NS 0.9% 1,000 ML IV PRN (13:28)
[2020-01-24] MEDS ORDERED: TEMAZEPAM 15 MG CAPSULE PO PRN (13:30)
[2020-01-24] MEDS ORDERED: MORPHINE SULFATE INJ 2 MG/ML DISP.SYRIN IV PRN (13:30)
[2020-01-24] MEDS ORDERED: ACETAMINOPHEN 650 MG/SUPP.RECT RC PRN (13:30)
[2020-01-24] MEDS ORDERED: HYDROCODONE/APAP 5/325MG TABLET GT PRN (13:30)
[2020-01-24] MEDS ORDERED: ONDANSETRON HCL/PF 4 MG/2 ML VIAL IVP PRN (13:30)
[2020-01-24] MEDS ORDERED: HOME MED MISCELLANEOUS XX SCH (13:30)
[2020-01-24] MEDS ORDERED: Z GUARD REMEDY 2 OZ OINT TP PRN (13:30)
--- NOTE | 2020-01-24 13:47 | NUR ---
COVID RESULT: NEGATIVE
--- NOTE | 2020-01-24 13:54 | NUR ---
REPORT GIVEN TO AZEB DEL RIO.
[2020-01-24] MEDS ORDERED: DEXTROSE 50%-WATER 50 ML DISP.SYRIN IV PRN (14:30)
[2020-01-24 15:06] LABS: THYROID STIMULATING HORMONE 5.148 uIU/mL (0.358-3.74)
[2020-01-24 15:17] LABS: MAGNESIUM 1.9 mg/dL (1.8-2.4); PHOSPHORUS 4.8 mg/dL (2.5-4.9)
--- NOTE | 2020-01-24 15:18 | NUR ---
PATIENT TRANSFERRED TO ROOM 324-2 VIA ACLS PROTOCOL. NO DISTRESS NOTED.
[2020-01-24 15:30] VITALS: BP 125/76
--- NOTE | 2020-01-24 16:04 | NUR ---
RN ADMITTING NOTE Patient arrived around 1530, A/O x3 with periods of confusion. Breathin is even and unlabored showing no signs of acute distress or SOB, o2 sat 96% on RA. BP 125/76 HR 94 RR 16 T90.8 Tele monitor SR 90s. Skin assessed, photos taken and placed in chart. Patient is on bedrest at this time. Patient was able to urinate in urinal. Bed is in lowest position, side rails x3 in upright position, call light is within reach, fall safety and aspiration precautions enforced. Will continue with admitting order. Notified Tj ASSURANCE MANAGER INSURANCE to clarify if patient is ok to have meds and GTF.
--- NOTE | 2020-01-24 16:31 | NUR ---
RN NOTE Per Tj MEDTRONICS TECHNICIAN, patient cannot eat due to failed swallowed eval. OK to start GTF.
[2020-01-24] MEDS: GLUCERNA 1.2 1,000 ML BOTTLE NG PRN (17:29)
[2020-01-24] MEDS: IV NS 0.9% 1,000 ML IV SCH ×2 (17:30→23:53)
[2020-01-24] MEDS: CHOLECALCIFEROL 1,000 UNIT TABLET (VIT D3) GT SCH (17:31)
[2020-01-24] MEDS: ASCORBIC ACID 500 MG TABLET GT SCH (17:31)
[2020-01-24] MEDS: DEXAMETHASONE 4 MG TABLET PO SCH (17:31)
[2020-01-24] MEDS: BLOOD SUGAR DIAGNOSTIC 1 EACH STRIP IN SCH (17:32)
[2020-01-24] MEDS: TIMOLOL 0.5% SOLN OPHTH 5 ML BOTTLE EACHEYE SCH (17:32)
[2020-01-24] MEDS: DORZOLAMIDE OPTH 2% 10 ML BOTTLE EACHEYE SCH (17:32)
[2020-01-24] MEDS: DIGOXIN INJ 0.5 MG/2 ML AMPUL IV SCH (17:32)
[2020-01-24] MEDS: BRIMONIDINE TARTRATE OPHT SOLN 5 ML BOTTLE EACHEYE SCH (17:32)
[2020-01-24] MEDS: PROSOURCE / PROSTAT (PYXIS) 30 ML UDC GT SCH (17:49)
[2020-01-24] MEDS: INSULIN REGULAR, HUMAN 100 UNIT/ML 3 ML VIAL SQ PRN (18:03)
[2020-01-24] MEDS: LORAZEPAM INJ 2 MG/ML VIAL IV PRN (18:03)
--- NOTE | 2020-01-24 19:05 | NUR ---
RN CLOSING NOTE Patient is resting in bed, A/O x2-3 with periods of confusion, agitation. Breathing is even and unlabored showing no signs of acute distress or SOB, o2 sat 96% on RA. Tele monitor SR 90s-100s. Patient is on bedrest at this time. GTF running Glucerna 1.2 @ 40mls/hour. Will endorse to conduit cleaner to advance as tolerated. IV line in the LAC#20g is clean and intact running NS @ 200mls.hour. IV line in the RAC#20g is clean and intact s/l. All patient needs met, all due medications given, patient kept clean and dry throughout shift. Bed is in lowest position, side rails x3 in upright position, call light is within reach, fall, safety, seizure and aspiration precautions enforced. Will endorse to conduit cleaner.
[2020-01-24 20:00] VITALS: BP 127/75
[2020-01-24] MEDS ORDERED: DOXAZOSIN MESYLATE (1 MG) 1 MG TABLET GT SCH (22:00)
[2020-01-24] MEDS: LEVETIRACETAM SOL (5 ML) 100 MG/ML UDC PO SCH (22:31)
[2020-01-25] MEDS: INSULIN REGULAR, HUMAN 100 UNIT/ML 3 ML VIAL SQ PRN ×2 (00:02→12:35)
[2020-01-25] MEDS: DIGOXIN INJ 0.5 MG/2 ML AMPUL IV SCH ×2 (00:04→06:08)
[2020-01-25] MEDS: BLOOD SUGAR DIAGNOSTIC 1 EACH STRIP IN SCH ×3 (00:11→12:34)
[2020-01-25 00:27] VITALS: BP 109/75
--- NOTE | 2020-01-25 00:37 | NUR ---
MS/TELE/RN PATIENT IS SLEEPING AT THIS TIME, APPEAR COMFORTABLE, NO SIGNS OF DISTRESS NOTED, HOB ELEVATED, CALL LIGHT IN REACH. WILL CONTINUE TO MONITOR.
[2020-01-25 04:00] VITALS: BP 119/67
--- NOTE | 2020-01-25 06:16 | NUR ---
MS/TELE/RN BLOOD SUGAR 145, REFUSED INSULIN DESPITE EDUCATION OF THE IMPORTANCE OF INSULIN. ALL NEEDS ATTENDED AT THIS TIME, WILL CONTINUE TO MONITOR.
--- NOTE | 2020-01-25 07:30 | NUR ---
RN NOTE THE PATIENT IS RECEIVED IN BED. THE PATIENT IS ALERT AND ORIENTED TO SELF AND PLACE. ABLE TO MAKE NEEDS KNOWN VERBALLY. DENIES PAIN. IN ROOM AIR AND DENIES SOB. RESPIRATION REGULAR AND UNLABORED. THE PATIENT IS ON TELE BOX AND READING IS SINUS RHYTHM 73. GT FEEDING GLUCERNA 1.2 AT 70ML/HR. ABDOMEN SOFT AND NON-DISTENDED. BED LOW AND LOCKED. SIDE RAILS UP X3. CALL LIGHT WITHIN REACH. WILL CONTINUE TO MONITOR.
[2020-01-25 08:00] VITALS: BP 131/67
[2020-01-25 08:23] LABS: BASOPHILS % (AUTO) 0.3 % (0.0-2.0); HEMATOCRIT 42 % (39-51); HEMOGLOBIN 13.8 g/dL (13.5-17.5); LYMPHOCYTES # (AUTO) 0.6 /CMM (0.8-4.8); LYMPHOCYTES % (AUTO) 5.3 % (20.0-44.0); MEAN CORPUSCULAR HGB CONC 33 g/dl (31.0-36.0); MEAN CORPUSCULAR VOLUME 102 fL (80-96); MONOCYTES # (AUTO) 0.8 /CMM (0.1-1.30); MONOCYTES % (AUTO) 6.3 % (2.0-12.0); NEUTROPHILS # (AUTO) 10.6 /CMM (1.8-8.9); NEUTROPHILS % (AUTO) 88.1 % (43.0-81.0); PLATELET COUNT (AUTO) 124 /CMM (150-450); RED BLOOD CELL COUNT(AUTO) 4.11 MIL/uL (4.5-6.0); WHITE BLOOD COUNT (AUTO) 12.1 K/uL (4.3-11.0)
[2020-01-25] MEDS: LORAZEPAM INJ 2 MG/ML VIAL IV PRN (08:36)
[2020-01-25] MEDS: CHOLECALCIFEROL 1,000 UNIT TABLET (VIT D3) GT SCH ×2 (08:36→12:26)
[2020-01-25] MEDS: LEVETIRACETAM SOL (5 ML) 100 MG/ML UDC PO SCH (08:36)
[2020-01-25] MEDS: DEXAMETHASONE 4 MG TABLET PO SCH ×2 (08:36→12:26)
[2020-01-25] MEDS: ASCORBIC ACID 500 MG TABLET GT SCH (08:36)
[2020-01-25] MEDS: DORZOLAMIDE OPTH 2% 10 ML BOTTLE EACHEYE SCH (08:37)
[2020-01-25] MEDS: TIMOLOL 0.5% SOLN OPHTH 5 ML BOTTLE EACHEYE SCH (08:37)
[2020-01-25] MEDS: BRIMONIDINE TARTRATE OPHT SOLN 5 ML BOTTLE EACHEYE SCH (08:37)
[2020-01-25 08:49] LABS: ALANINE AMINOTRANSFERASE 107 U/L (12-78); ALBUMIN 2.6 g/dL (3.4-5.0); ALKALINE PHOSPHATASE 71 U/L (46-116); ASPARTATE AMINOTRANSFERASE 27 U/L (15-37); BILIRUBIN,TOTAL 0.3 mg/dL (0.2-1.0); CALCIUM, SERUM 8.9 mg/dL (8.5-10.1); CARBON DIOXIDE 26 mmol/L (21-32); CHLORIDE 102 mmol/L (98-107); CHOLESTEROL 213 mg/dL (<200); CREATININE 0.5 mg/dL (0.6-1.3); GLUCOSE 132 mg/dL (74-106); HDL CHOLESTEROL 45 mg/dL (40-60); LDL 129 mg/dL (0-99); PHOSPHORUS 3.2 mg/dL (2.5-4.9); POTASSIUM 3.4 mmol/L (3.5-5.1); SODIUM SERUM 138 mmol/L (136-145); TOTAL PROTEIN, SERUM 5.8 g/dL (6.4-8.2); TRIGLYCERIDES 258 mg/dL (30-150); UREA NITROGEN, BLOOD 17 mg/dL (7-18)
[2020-01-25] MEDS ORDERED: MULTIVITAMINS,THERAGRAN 1 UDTAB TABLET GT SCH (09:00)
[2020-01-25] MEDS ORDERED: PANTOPRAZOLE 40 MG/PACK PACK NG SCH (09:00)
[2020-01-25] MEDS ORDERED: PANTOPRAZOLE 40 MG VIAL IV SCH (09:00)
[2020-01-25] MEDS: PROSOURCE / PROSTAT (PYXIS) 30 ML UDC GT SCH (09:02)
[2020-01-25] MEDS: GLUCERNA 1.2 1,000 ML BOTTLE NG PRN (09:03)
[2020-01-25] MEDS ORDERED: IV NS 0.9% 1,000 ML IV PRN (09:09)
[2020-01-25 09:24] LABS: BAND % (MANUAL) 2 % (0.0-5.0); LYMPHOCYTES % (MANUAL) 5 % (16-48); MONOCYTES % (MANUAL) 8 % (0-11.0); NEUTROPHILS % (MANUAL) 85 (42-76)
[2020-01-25] MEDS ORDERED: POTASSIUM CHLORIDE 20 MEQ POWDER PACKET NG SCH (09:30)
--- NOTE | 2020-01-25 09:32 | NUR ---
WOUND CARE CONSULT: PT PRESENTS WITH MULTIPLE SKIN DISCOLORATIONS TO UPPER AND LOWER EXTREMITIES, RT HEEL INTACT DEEP TISSUE INJURY, DEEP TISSUE INJURY IN EVOLUTION TO BACK AND SACRAL SCARRING, ALL PRESENT ON ADMISSION. RECOMMEND SURGICAL CONSULT FOR BACK WOUND. DR ANN GONGORA NOTIFIED OF CONSULT REQUEST. RECOMMENDATIONS MADE FOR SKIN PROTECTION AND WOUND CARE. DISCUSSED WITH NURSING STAFF. JONATHAN ISOFLEX LOW AIRLOSS BED TO BE PLACED. IN AGREEMENT WITH PLAN OF CARE. Addendum: 01/25/20 at 0935 by CHERIE LEHMAN WNDNU Amended: Links added.
[2020-01-25 12:00] VITALS: BP 110/71
[2020-01-25] MEDS ORDERED: DIGOXIN 0.25 MG TABLET GT SCH ×2 (13:00)
[2020-01-25] MEDS ORDERED: DIGOXIN ELIX UDC 0.25 MG/5 ML UDC GT SCH (13:00)
--- NOTE | 2020-01-25 13:07 | NUR ---
RN NOTE REPORT GIVEN TO CECILY DUBOIS FROM [facility]. THE PATIENT IS MADE AWARE ABOUT TRANSFER.
--- NOTE | 2020-01-25 13:45 | NUR ---
RN NOTE THE PATIENT ALERT AND ORIENTED X2. OXYGEN SATURATION IN ROOM AIR IS AT 95%. DENIES SOB. RESPIRATION REGULAR AND UNLABORED. THE PATIENT DENIES PAIN. THE PATIENT IN NO APPARENT DISTRESS. GT FLUSHED. IV LINES REMOVED. NOTED MINIMAL BLEEDING. THE SITES COVERED 2X2 GAUZE. THE PATIENT LEFT THE HOSPITAL IN STABLE CONDITION. PET TRAINER DONE BY AMBULANCE.
== END 2020-01-25 13:45 | DRG 308 ==
LOC: ER 10:39 → TELE 13:52
PROVIDERS: ADMIT Nurse Practitioner Acute Care; ATTEND Nurse Practitioner Acute Care
DX: I48.91 Unspecified atrial fibrillation (principal); G93.41 Metabolic encephalopathy; C34.90 Malignant neoplasm of unspecified part of unspecified bronchus or lung; C79.31 Secondary malignant neoplasm of brain; D68.59 Other primary thrombophilia; N17.9 Acute kidney failure, unspecified; N40.0 Benign prostatic hyperplasia without lower urinary tract symptoms; H40.9 Unspecified glaucoma; I10 Essential (primary) hypertension; E11.9 Type 2 diabetes mellitus without complications; Z79.899 Other long term (current) drug therapy; D72.829 Elevated white blood cell count, unspecified; G40.909 Epilepsy, unspecified, not intractable, without status epilepticus; R13.10 Dysphagia, unspecified; L89.106 Pressure-induced deep tissue damage of unspecified part of back; D69.6 Thrombocytopenia, unspecified; Z93.1 Gastrostomy status
CPT/HCPCS: 36415; 71045-TC; 80048-TC; 80053-TC; 80061-TC; 80162-TC; 82962-TC; 83735-TC; 84100-TC; 84439-TC; 84443-TC; 84484-TC; 85025-TC; 87081-TC; C9803-CS; G0378; J1160; J1815; J1953; J2060; J3490; J7030; J8540

== ENCOUNTER 2020-03-08 09:37 | Inpatient (IN) | payer MEDICARE, OTHER ==
[~2020-03-08] VITALS: Ht 180.3 cm; Wt 86.2 kg
[~2020-03-08 09:37] MED LIST changes: -ALFU10TA10 PO; +AMIN30LI24 GT; +ASCO-352 GT; +CHOL100040 GT; +DIGO250T GT; +DOXA2TAB GT; -Digoxin PO; -HYDR-3972 GT; -LEVO500T23 GT; +MULT-447 GT; +NUT.237L30 GT; -NUT.237L45 GT; +OMEP20CA15 GT; -PANT40SU2 GT; -PIOG30TA10 PO
--- NOTE | 2020-03-08 09:45 | NUR ---
BIBPA FROM [facility] C/O LO2 O2 SAT 89% ON RA. (+COVID) PATIENT A/OX3, MOANING, BREATHING EVEN AND UNLABORED, CAME IN WITH 94% ON ROOM AIR. BUT O2 SAT GRADUALLY DECREASED TO 89%, APPLIED ON 4LPM VIA NC.
--- NOTE | 2020-03-08 09:55 | NUR ---
IV LINE ESTABLISHED ON LEFT HAND G20, BLOOD DRAWN AND SENT TO LAB. SKIN CARE PROVIDED. BRISCOE CATHETER INSERTED WITH URINE SAMPLE SENT TO LAB.
--- NOTE | 2020-03-08 10:30 | NUR ---
PROFESSOR OF INDUSTRIAL TECHNOLOGY AT BEDSIDE.
[2020-03-08 10:32] LABS: BASOPHILS % (AUTO) 0.3 % (0.0-2.0); EOSINOPHILS % (AUTO) 0.3 % (0.0-6.0); HEMATOCRIT 40 % (39-51); HEMOGLOBIN 13.4 g/dL (13.5-17.5); LYMPHOCYTES # (AUTO) 0.8 /CMM (0.8-4.8); LYMPHOCYTES % (AUTO) 9.7 % (20.0-44.0); MEAN CORPUSCULAR HGB CONC 34 g/dl (31.0-36.0); MEAN CORPUSCULAR VOLUME 100 fL (80-96); MONOCYTES # (AUTO) 0.4 /CMM (0.1-1.30); MONOCYTES % (AUTO) 4.9 % (2.0-12.0); NEUTROPHILS # (AUTO) 7.2 /CMM (1.8-8.9); NEUTROPHILS % (AUTO) 84.8 % (43.0-81.0); PLATELET COUNT (AUTO) 204 /CMM (150-450); RED BLOOD CELL COUNT(AUTO) 3.96 MIL/uL (4.5-6.0); WHITE BLOOD COUNT (AUTO) 8.5 K/uL (4.3-11.0)
[2020-03-08 10:39] LABS: BILIRUBIN,URINE NEGATIVE (NEGATIVE); BLOOD, URINE SMALL Ery/uL (NEGATIVE); COLOR,URINE YELLOW (YELLOW); LEUKOCYTE ESTERASE ,URINE SMALL (NEGATIVE); NITRITE, URINE POSITIVE (NEGATIVE); PH,URINE 8.5 (5.0-8.0); PROTEIN,URINE 30 mg/dl (NEGATIVE); UGLUCOSE NEGATIVE (NEGATIVE)
[2020-03-08 10:57] LABS: BACTERIA,URINE Many /HPF (None Seen); SQUAMOUS EPITHELIAL CELL,UR Few /HPF (None Seen)
[2020-03-08] MEDS ORDERED: IV NS 0.9% 500 ML BAG IV ONE ×2 (11:00→11:30)
--- NOTE | 2020-03-08 11:01 | NUR ---
recieved bed 208-1
[2020-03-08 11:27] LABS: CREATINE KINASE, TOTAL 46 U/L (39-308); FERRITIN 3117 ng/mL (8-388)
[2020-03-08 11:28] LABS: C-REACTIVE PROTEIN 13.9 mg/dL (0.0-0.9)
[2020-03-08] MEDS ORDERED: AMIN887L GT (11:29)
[2020-03-08] MEDS ORDERED: PIOG30TA10 PO (11:29)
[2020-03-08] MEDS ORDERED: PIPERACILLIN /TAZOBACTAM 3.375 G in IV D5W 50 ML IV ONE (11:30)
[2020-03-08] MEDS ORDERED: IV NS 0.9% 1,000 ML BAG IV ONE (11:30)
[2020-03-08] MEDS ORDERED: LEVOFLOXACIN 750 MG /D5W 150ML 150 ML IV ONE (11:30)
[2020-03-08 11:43] LABS: CALCIUM, SERUM 9.1 mg/dL (8.5-10.1); CARBON DIOXIDE 21 mmol/L (21-32); CHLORIDE 103 mmol/L (98-107); CREATININE 0.7 mg/dL (0.6-1.3); GLUCOSE 167 mg/dL (74-106); POTASSIUM 3.9 mmol/L (3.5-5.1); SODIUM SERUM 143 mmol/L (136-145); UREA NITROGEN, BLOOD 20 mg/dL (7-18)
[2020-03-08 11:52] LABS: ALANINE AMINOTRANSFERASE 102 U/L (12-78); ALBUMIN 2.6 g/dL (3.4-5.0); ALKALINE PHOSPHATASE 72 U/L (46-116); ASPARTATE AMINOTRANSFERASE 63 U/L (15-37); B-TYPE NATRIURETIC PEPTIDE 245 PG/ML (0-125); BILIRUBIN,TOTAL 0.8 mg/dL (0.2-1.0)
[2020-03-08] MEDS ORDERED: MAG HYDROX/AL HYDROX/SIMETH 30 ML UDC PO PRN (12:00)
[2020-03-08] MEDS ORDERED: ACETAMINOPHEN 325 MG TABLET PO PRN (12:00)
[2020-03-08] MEDS ORDERED: MAGNESIUM HYDROXIDE 30 ML UDC PO PRN (12:00)
[2020-03-08] MEDS ORDERED: ONDANSETRON HCL/PF 4 MG/2 ML VIAL IVP PRN (12:00)
[2020-03-08] MEDS ORDERED: ZOLPIDEM TARTRATE 5 MG TABLET PO PRN (12:00)
[2020-03-08] MEDS ORDERED: DEXAMETHASONE SOD PHOSPHATE 10 MG/ML VIAL IV SCH (12:00)
[2020-03-08] MEDS ORDERED: Z GUARD REMEDY 2 OZ OINT TP PRN (12:00)
--- NOTE | 2020-03-08 12:23 | NUR ---
CALLED FOR REPORT. UNIT IS CURRENTLY TRANSFERRING A PT TO ICU.
[2020-03-08] MEDS ORDERED: DIGOXIN 0.25 MG TABLET GT SCH (13:00)
--- NOTE | 2020-03-08 13:27 | NUR ---
REPORT GIVEN TO ELIANE AC FOR [place]
[2020-03-08 13:44] LABS: BILIRUBIN,DIRECT 0.1 mg/dL (0.0-0.2)
[2020-03-08 13:48] VITALS: BP 117/71
--- NOTE | 2020-03-08 13:48 | NUR ---
BELTING CUTTER NOTES RECEIVED PT FROM E.R. STAFF VIA BRAI, PT IS AWAKE, ALERT AND VERBALLY RESPONSIVE, DENIES PAIN, BREATHING PATTERN NORMAL, ASSISTED TO BED, MADE COMFORTABLE, ROOM SET UP ORIENTATION PROVIDED TO PT, VERBALIZED UNDERSTANDING, KEPT WARM AND COMFORTABLE IN BED, ADMITTING ORDERS RECEIVED FROM DR. ESPARZA.
--- NOTE | 2020-03-08 13:49 | NUR ---
PT TRANSPORTED TO UNIT ON [facility] EMT AND RN AT BEDSIDE W/ ACLS PROTOCOL. NAD NOTED DURING TRANSPORT.
[2020-03-08] MEDS: DEXAMETHASONE SOD PHOSPHATE 10 MG/ML VIAL IV SCH ×2 (14:41→21:29)
[2020-03-08 16:00] VITALS: BP 116/82
--- NOTE | 2020-03-08 16:25 | NUR ---
MORTGAGE ORIGINATOR NOTES LIMITED SKIN ASSESSMENT DONE, PT REFUSED FURTHER SKIN ASSESSMENT, EXPLAINED THE NEED FOR IT, STILL REFUSED.
[2020-03-08] MEDS: DORZOLAMIDE OPTH 2% 10 ML BOTTLE EACHEYE SCH ×2 (17:00→17:12)
[2020-03-08] MEDS: TIMOLOL 0.5% SOLN OPHTH 5 ML BOTTLE EACHEYE SCH ×2 (17:00→17:11)
[2020-03-08] MEDS: BRIMONIDINE TARTRATE OPHT SOLN 5 ML BOTTLE EACHEYE SCH ×2 (17:00→17:11)
[2020-03-08] MEDS: PROSOURCE / PROSTAT (PYXIS) 30 ML UDC GT SCH (17:12)
[2020-03-08] MEDS: LEVETIRACETAM SOL (5 ML) 100 MG/ML UDC GT SCH (17:12)
[2020-03-08] MEDS: CHOLECALCIFEROL 1,000 UNIT TABLET (VIT D3) GT SCH (17:12)
[2020-03-08] MEDS: ASCORBIC ACID 500 MG TABLET GT SCH (17:13)
--- NOTE | 2020-03-08 18:19 | NUR ---
WORK ADJUSTMENT INSTRUCTOR NOTES PT IN BED, RESTING, EASY TO AROUSE, ALERT AND VERBALLY RESPONSIVE, WITH EPISODES OF CONFUSION, REDIRECTABLE, ISOLATION PRECAUTIONS OBSERVED, PM MEDS GIVEN, PM CARE PROVIDED, REFUSED EYE DROPS, KEPT WARM AND COMFORTABLE AND RETAIL SELLING SPECIALIST BED.
[2020-03-08] MEDS: GLUCERNA 1.2 1,000 ML BOTTLE NG PRN (19:52)
--- NOTE | 2020-03-08 20:00 | NUR ---
RN NOTES RECEIVED PATIENT IN BED, ALERT AND ORIENTED X2, ON 4LPM VIA NC, SOMETIMES REMOVING NASAL CANNULA, IRRITABLE, CRYING, ANXIOUS, GENERALIZED HAND DISCOLORATION, BRISCOE CATHETER DRAINING WELL, AIRBORNE ISOLATION, TESTED POSITIVE COVID IN SNF, AWAITING PCR RESULT, KEPT SAFE, WILL CONTINUE TO MONITOR
[2020-03-08 20:44] VITALS: BP 104/72
[2020-03-08] MEDS: HYDROCODONE/APAP 5/325MG TABLET PO PRN (21:36)
[2020-03-08 22:00] VITALS: BP 104/72
--- NOTE | 2020-03-08 22:28 | NUR ---
RN NOTES POSITIVE COVID VIA PCR, PATIENT NO FEVER, NO SOB, NOTIFIED TIRE VULCANIZER MARCO, NO NEW ORDER.
[2020-03-09] VITALS (9 sets, daily range): BP systolic 100–123; BP diastolic 65–81
[2020-03-09] MEDS: HYDROCODONE/APAP 5/325MG TABLET PO PRN ×3 (04:23→16:40)
[2020-03-09] MEDS: DEXAMETHASONE SOD PHOSPHATE 10 MG/ML VIAL IV SCH ×3 (04:23→20:59)
--- NOTE | 2020-03-09 06:25 | NUR ---
RN NOTES PATIENT AWAKE, ANXIOUS, CRYING OUT, ON 4LPM VIA NC, BRISCOE CATHETER DRAINING WELL WITH YELLOW URINE, GLUCERNA 1.2 AT 70 ML X10 HRS OR 700 ML, NO RESIDUAL, TOLERATED WELL, ON PUREED DIET WELL WITH CRUSHED MEDS WITH APPLE SAUCE. VS STABLE, REMAINED AFEBRILE, SR, AM LABS, AIRBORNE ISOLATION, COVID (+), DEXAMETHASONE IV.
[2020-03-09 06:31] LABS: BASOPHILS % (AUTO) 0.1 % (0.0-2.0); HEMATOCRIT 36 % (39-51); LYMPHOCYTES # (AUTO) 0.4 /CMM (0.8-4.8); MEAN CORPUSCULAR HGB CONC 33 g/dl (31.0-36.0); MEAN CORPUSCULAR VOLUME 102 fL (80-96); MONOCYTES # (AUTO) 0.2 /CMM (0.1-1.30); MONOCYTES % (AUTO) 2.7 % (2.0-12.0); NEUTROPHILS # (AUTO) 8.6 /CMM (1.8-8.9); NEUTROPHILS % (AUTO) 93.2 % (43.0-81.0); PLATELET COUNT (AUTO) 174 /CMM (150-450); RED BLOOD CELL COUNT(AUTO) 3.54 MIL/uL (4.5-6.0); WHITE BLOOD COUNT (AUTO) 9.2 K/uL (4.3-11.0)
[2020-03-09 07:03] LABS: CALCIUM, SERUM 8.7 mg/dL (8.5-10.1); CREATININE 0.7 mg/dL (0.6-1.3); PHOSPHORUS 3.2 mg/dL (2.5-4.9); POTASSIUM 3.2 mmol/L (3.5-5.1)
--- NOTE | 2020-03-09 07:47 | NUR ---
TELE/RN OPENING NOTES RECEIVED PATIENT ON BED. AWAKE AND ORIENTED X 2. PATIENT IN NO APPARENT RESPIRATORY DISTRESS NOTED. NO SIGN AND SYMPTOM OF PAIN NOTED AT THIS TIME. TELE MONITOR WAS IN PLACE READING SINUS RHYTHM 90 BPM. PATIENT REFUSED TO EAT BREAKFAST. WILL CONTINUE TO MONITOR.
[2020-03-09] MEDS: BRIMONIDINE TARTRATE OPHT SOLN 5 ML BOTTLE EACHEYE SCH ×2 (08:43→16:22)
[2020-03-09] MEDS: DORZOLAMIDE OPTH 2% 10 ML BOTTLE EACHEYE SCH ×2 (08:44→16:22)
[2020-03-09] MEDS: TIMOLOL 0.5% SOLN OPHTH 5 ML BOTTLE EACHEYE SCH ×2 (08:44→16:22)
[2020-03-09] MEDS: PIOGLITAZONE HCL 15 MG TABLET GT SCH (08:45)
[2020-03-09] MEDS: MULTIVIT W/MINERALS 1 TAB TABLET GT SCH (08:45)
[2020-03-09] MEDS: ASCORBIC ACID 500 MG TABLET GT SCH ×2 (08:45→16:16)
[2020-03-09] MEDS: CHOLECALCIFEROL 1,000 UNIT TABLET (VIT D3) GT SCH ×3 (08:45→16:16)
[2020-03-09] MEDS: LEVETIRACETAM SOL (5 ML) 100 MG/ML UDC GT SCH ×2 (08:45→16:16)
[2020-03-09] MEDS: PROSOURCE / PROSTAT (PYXIS) 30 ML UDC GT SCH ×2 (08:45→16:23)
[2020-03-09] MEDS ORDERED: DOXAZOSIN MESYLATE (4 MG) 4 MG TABLET GT SCH (09:00)
[2020-03-09] MEDS: TRIAMTERENE/HYDROCHLOROTHIAZID (37.5/25MG) 1 UDCAP GT SCH (10:24)
[2020-03-09] MEDS ORDERED: POTASSIUM CHLORIDE 20 MEQ POWDER PACKET GT ONE (10:30)
--- NOTE | 2020-03-09 10:39 | NUR ---
TELE/RN NOTES PATIENT REFUSED TO USE DVT PUMP. PATIENT COMPLAINED OF GENERALIZED PAIN. EXPLAINED THE RISK AND BENEFITS.
[2020-03-09] MEDS: PANTOPRAZOLE 40 MG/PACK PACK GT SCH (10:44)
[2020-03-09] MEDS ORDERED: OMEPRAZOLE 20 MG CAPSULE.DR GT SCH (11:30)
[2020-03-09] MEDS: DIGOXIN 0.125 MG TABLET GT SCH (12:21)
[2020-03-09] MEDS: CEFTRIAXONE 1 G in IV D5W 50 ML IV SCH (16:15)
[2020-03-09] MEDS: GLUCERNA 1.2 1,000 ML BOTTLE NG PRN (17:52)
--- NOTE | 2020-03-09 19:18 | NUR ---
TELE/RN CLOSING NOTES PATIENT IS ON BED. PATIENT IN NO APPARENT RESPIRATORY DISTRESS NOTED. PATIENT NO SIGN AND SYMPTOM PAIN NOTED AT THIS TIME. TELE MONITOR WAS IN PLACE READING SINUS BRIAN 45 BPM. IV ACCESS AT RIGHT FOREARM # 24G PATENT AND INTACT. SEEN AND EXAMINED BY MD WITH ORDERS MADE AND CARRIED OUT. ALL DUE MEDICATION WAS GIVEN. SAFETY AND ISOLATION PRECAUTIONS WAS IN PLACE. BED IN LOWEST POSITION AND LOCKED. SIDERAILS UP X2. CALL LIGHT WITH IN REACH. WILL ENDORSED TO METAL NUMERICAL TOOL PROGRAMMER FOR [place].
--- NOTE | 2020-03-09 19:30 | NUR ---
TELE/RN OPENING NOTES RECEIVED PATIENT IN BED RESTING. PATIENT IS ALERT AND ORIENT X 2. PATIENT SHOWS NO SIGNS OF SOB OR RESPIRATORY DISTRESS NOTED. BREATHING IS EVEN AND UNLABORED. TELE READING SR 61. PATIENT HAS RIGHT FOREARM #24G IV INTACT S/L. SAFETY MEASURES ARE IN PLACE, BED IS LOCKED AND PLACED IN THE LOW POSITION, CALL LIGHT WITHIN REACH. WILL CONTINUE TO MONITOR DURING SHIFT.
[2020-03-10 00:35] VITALS: BP 111/63
--- NOTE | 2020-03-10 01:00 | NUR ---
TELE/RN NOTES DOCTOR MARCO NOTIFIED OF PATIENT BLOOD CX RESULTS, GRAM POSITIVE COCCI. PER ZAIDA ENDORSE TO DAY SHIFT PROVIDER.
[2020-03-10 04:56] VITALS: BP 123/67
[2020-03-10] MEDS: DEXAMETHASONE SOD PHOSPHATE 10 MG/ML VIAL IV SCH ×3 (05:06→21:11)
--- NOTE | 2020-03-10 06:35 | NUR ---
TELE/RN CLOSING NOTES PATIENT IN BED RESTING. PATIENT IS ALERT AND ORIENT X 2. PATIENT SHOWS NO SIGNS OF SOB OR RESPIRATORY DISTRESS NOTED. BREATHING IS EVEN AND UNLABORED. TELE READING SB 59. PATIENT HAS RIGHT FOREARM #24G IV INTACT SL. BRISCOE OUTPUT 400CC. PATIENT IN NO ACUTE DISTRESS. ALL NEEDS HAVE BEEN MET DURING SHIFT.SAFETY MEASURES ARE IN PLACE, BED IS LOCKED AND PLACED IN THE LOW POSITION, CALL LIGHT WITHIN REACH. WILL ENDORSE CARE TO DAY SHIFT.
--- NOTE | 2020-03-10 07:00 | NUR ---
RN OPENING NOTES PATIENT IN BED RESTING. PATIENT IS ALERT AND ORIENT X 2. PATIENT SHOWS NO SIGNS OF SOB OR RESPIRATORY DISTRESS NOTED. BREATHING IS EVEN AND UNLABORED. TELE READING SB 59. PATIENT HAS RIGHT FOREARM #24G IV INTACT SL. BRISCOE CATH INTACT AND PATENT AND FLUSHING WELL. PATIENT IN NO ACUTE DISTRESS.SAFETY MEASURES ARE IN PLACE, BED IS LOCKED AND PLACED IN THE LOW POSITION, CALL LIGHT WITHIN REACH. WILL CONT TO MONITOR
[2020-03-10 08:00] VITALS: BP 106/66
--- NOTE | 2020-03-10 08:10 | NUR ---
DR. ESPARZA CURRENTLY ON THE FLOOR, MADE AWARE OF PTS GRAM - COCCI BLOOD CX RESULTS. ALSO ASK MD IF PT CAN HAVE CHEMICAL PPX FOR DVT. PER DR. ESPARZA. OKAY TO GIVE LOVENOX 40MG QD.
[2020-03-10] MEDS: ASCORBIC ACID 500 MG TABLET GT SCH ×2 (08:38→16:07)
[2020-03-10] MEDS: BRIMONIDINE TARTRATE OPHT SOLN 5 ML BOTTLE EACHEYE SCH ×2 (08:38→16:05)
[2020-03-10] MEDS: CHOLECALCIFEROL 1,000 UNIT TABLET (VIT D3) GT SCH ×3 (08:38→16:07)
[2020-03-10] MEDS: MULTIVIT W/MINERALS 1 TAB TABLET GT SCH (08:38)
[2020-03-10] MEDS: PROSOURCE / PROSTAT (PYXIS) 30 ML UDC GT SCH ×2 (08:38→16:07)
[2020-03-10] MEDS: PIOGLITAZONE HCL 15 MG TABLET GT SCH (08:38)
[2020-03-10] MEDS: LEVETIRACETAM SOL (5 ML) 100 MG/ML UDC GT SCH ×2 (08:38→16:07)
[2020-03-10] MEDS: DOXAZOSIN MESYLATE (1 MG) 1 MG TABLET GT SCH (08:39)
[2020-03-10] MEDS: DORZOLAMIDE OPTH 2% 10 ML BOTTLE EACHEYE SCH ×2 (08:39→16:05)
[2020-03-10] MEDS: TIMOLOL 0.5% SOLN OPHTH 5 ML BOTTLE EACHEYE SCH ×2 (08:39→16:05)
[2020-03-10] MEDS: TRIAMTERENE/HYDROCHLOROTHIAZID (37.5/25MG) 1 UDCAP GT SCH (08:40)
--- NOTE | 2020-03-10 08:43 | NUR ---
WOUND CARE CONSULT: REVIEWED CHART, NURSING DOCUMENTATION AND PHOTOS WHICH INDICATE SACRAL SCARRING WITH INTACT DEEP TISSUE INJURY, PRESENT ON ADMISSION. RECOMMENDATIONS MADE FOR SKIN PROTECTION. DISCUSSED WITH NURSING STAFF. PT IS ON HENDRIX ISOFLEX LOW AIRLOSS BED. MD IN AGREEMENT WITH PLAN OF CARE.
[2020-03-10] MEDS ORDERED: POTASSIUM CHLORIDE 20 MEQ POWDER PACKET GT SCH (09:30)
--- NOTE | 2020-03-10 09:30 | NUR ---
CALLED LAB, ASKED LAB TO SEND SOMEBODY AGAIN TO DRAW THE LABS FOR PT
[2020-03-10] MEDS: VANCOMYCIN 1 GM in IV D5W 250 ML IV SCH ×2 (10:02→21:11)
--- NOTE | 2020-03-10 11:57 | NUR ---
CARBIDE TOOL MAKER HERE TO DRAW PTS BLOOD, HOWEVER PT IS A HARD STICK. ATTEMPTED 2X. STILL WAS UNABLE TO DRAW
--- NOTE | 2020-03-10 12:00 | NUR ---
PT CURSING AND YELLING, DOES NOT WANT TO RE-TRY BLOOD DRAW ANYMORE. EXPLAINED RISKS AND BENEFITS STILL REFUSED. WILL OBTAIN ORDER FROM DR. ESPARZA FOR MIDLINE.
[2020-03-10] MEDS: PANTOPRAZOLE 40 MG/PACK PACK GT SCH (12:04)
[2020-03-10] MEDS: DIGOXIN 0.125 MG TABLET GT SCH (12:05)
[2020-03-10] MEDS: ENOXAPARIN SODIUM 40 MG/0.4 ML DISP.SYRIN SQ SCH (12:06)
--- NOTE | 2020-03-10 12:52 | NUR ---
DR. CRAIG OKAYED TO INSERT MIDLINE. MIDLINE INSERTED ON PTS R UPPER ARM. INTACT AND PATENT AND FLUSHING WELL.
[2020-03-10 14:14] LABS: BASOPHILS # (AUTO) 0.1 /CMM (0.0-0.2); BASOPHILS % (AUTO) 0.5 % (0.0-2.0); HEMATOCRIT 33 % (39-51); HEMOGLOBIN 10.9 g/dL (13.5-17.5); LYMPHOCYTES # (AUTO) 0.5 /CMM (0.8-4.8); LYMPHOCYTES % (AUTO) 4.7 % (20.0-44.0); MEAN CORPUSCULAR HGB CONC 33 g/dl (31.0-36.0); MEAN CORPUSCULAR VOLUME 101 fL (80-96); MONOCYTES # (AUTO) 0.2 /CMM (0.1-1.30); NEUTROPHILS # (AUTO) 10.4 /CMM (1.8-8.9); NEUTROPHILS % (AUTO) 92.8 % (43.0-81.0); PLATELET COUNT (AUTO) 180 /CMM (150-450); RED BLOOD CELL COUNT(AUTO) 3.24 MIL/uL (4.5-6.0); WHITE BLOOD COUNT (AUTO) 11.3 K/uL (4.3-11.0)
[2020-03-10 14:43] LABS: CALCIUM, SERUM 9.1 mg/dL (8.5-10.1); CARBON DIOXIDE 30 mmol/L (21-32); CHLORIDE 105 mmol/L (98-107); CREATININE 0.7 mg/dL (0.6-1.3); GLUCOSE 159 mg/dL (74-106); POTASSIUM 5.2 mmol/L (3.5-5.1); SODIUM SERUM 141 mmol/L (136-145); UREA NITROGEN, BLOOD 16 mg/dL (7-18)
--- NOTE | 2020-03-10 15:00 | NUR ---
DR. ESPARZA MADE AWARE OF PTS LAB RESULTS. WBC- 11.3 K+- 5.[address] CRAIG THATS FINE, BECAUSE THIS IS DUE TO STEROIDS AND THAT LACTIC ACID GOT BETTER. ASKED MD IF WOULD LIKE TO ORDER FLUIDS, PER MD, JUST ENCOURAGE FLUID INTAKE VIA PO AND GTUBE. ASKED MD IF HE WANTS TO ORDER ANYTHING FOR THE POTASSIUM. PER , NOT FOR NOW SINCE K+ WAS JUST REPLACED YESTERDAY. ALSO NOTIFIED MD THAT PT IS ON A K+ SPARING DIURETIC. PER CONTINUE DYAZIDE FOR NOW AND HE WILL SEE PT TOMORROW. MD ALSO ORDERED LACTIC ACID IN AM. ORDERS NOTED AND CARRIED OUT.
[2020-03-10 15:49] LABS: BAND % (MANUAL) 1 % (0.0-5.0); LYMPHOCYTES % (MANUAL) 5 % (16-48); MONOCYTES % (MANUAL) 5 % (0-11.0); NEUTROPHILS % (MANUAL) 89 (42-76)
[2020-03-10 16:00] VITALS: BP 108/71
[2020-03-10] MEDS: CEFTRIAXONE 1 G in IV D5W 50 ML IV SCH (16:05)
--- NOTE | 2020-03-10 16:23 | NUR ---
PT IS VERY RUDE, CURSING AND YELLING AT PRIMARY NURSE EVERYTIME SOMETHING NEEDS TO BE GIVEN TO HIM, SUCH GIVE HIS IV ATB, BLOOD DRAWS, MEDICATION ADMINISTRATION ETC. PT STARTED TO YELL UT, 'GET THE FUCK OUT OF MY ROOM, YOURE A CUNT! STUPID BITCH! GET THE FUCK OUT OF MY ROOM!"
--- NOTE | 2020-03-10 17:03 | NUR ---
OFFERED PT TO BE CHANGED AND CLEANED HOWEVER PT REFUSED STRONGLY. PT KEPT YELLING CURSING AND SCREAMING AT NURSE AND AIR INTELLIGENCE OFFICER, SAYING "GET THE FUCK OUT". PT WAS VERY RESISTIVE. DR. ESPARZA AWARE OF PTS BEHAVIORS.
[2020-03-10 17:41] LABS: BILIRUBIN,TOTAL 0.7 mg/dL (0.2-1.0)
[2020-03-10 17:46] LABS: BILIRUBIN,DIRECT < 0.1 mg/dL (0.0-0.2)
--- NOTE | 2020-03-10 19:26 | NUR ---
RN CLOSING NOTES PATIENT IN BED RESTING. PATIENT IS ALERT AND ORIENT X 2. PATIENT SHOWS NO SIGNS OF SOB OR RESPIRATORY DISTRESS NOTED. BREATHING IS EVEN AND UNLABORED. TELE READING SB 59. PATIENT HAS R UPPER ARM MIDLINE. INTACT AND PATENT AND FLUSHING WELL. BRISCOE CATH INTACT AND PATENT AND DRAINING. PATIENT IN NO ACUTE DISTRESS.ALL NEEDS MET AND ATTENDED. ALL DUE MEDS ADMINISTERED. TOLERATED WELL. SAFETY MEASURES ARE IN PLACE, BED IS LOCKED AND PLACED IN THE LOW POSITION, CALL LIGHT WITHIN REACH. WILL CONT TO MONITOR
--- NOTE | 2020-03-10 19:40 | NUR ---
RN OPENING NOTES PATIENT RECEIVED RESTING IN BED A/O X 2. ON 4L OF 02 WITH BREATHING EVEN AND UNLABORED, NO SOB NOTED. NO SIGNS OF ACUTE DISTRESS. NO COMPLAINTS OF PAIN OR DISCOMFORT AT THE MOMENT. TELE MONITOR READING SB 51. BRISCOE CATH NOTED AND IN PLACE. GTUBE FEEDING RUNNING GLUCERNA 1.2 @ 70ML/HR. KWESI MIDLINE NOTED AND INTACT. SAFETY PRECAUTIONS IN PLACE WITH BED IN LOWEST POSITION, CALL LIGHT WITHIN REACH, BREAKS ON, SIDE RAILS UP. WILL CONTINUE TO MONITOR THROUGHOUT THE NIGHT.
[2020-03-10 20:00] VITALS: BP 100/62
[2020-03-11] VITALS: BP 101/65
[2020-03-11] MEDS: GLUCERNA 1.2 1,000 ML BOTTLE NG PRN (01:58)
[2020-03-11 04:00] VITALS: BP 107/69
[2020-03-11] MEDS: DEXAMETHASONE SOD PHOSPHATE 10 MG/ML VIAL IV SCH ×3 (05:34→22:03)
--- NOTE | 2020-03-11 06:54 | NUR ---
RN CLOSING NOTES PATIENT RESTING IN BED A/O X 2. ON RA WITH BREATHING EVEN AND UNLABORED, NO SOB NOTED. NO SIGNS OF ACUTE DISTRESS. NO COMPLAINTS OF PAIN OR DISCOMFORT AT THE MOMENT. TELE MONITOR READING SR. BRISCOE CATH NOTED AND IN PLACE. KWESI MIDLINE NOTED AND INTACT. SAFETY PRECAUTIONS IN PLACE WITH BED IN LOWEST POSITION, CALL LIGHT WITHIN REACH, BREAKS ON, SIDE RAILS UP. ALL NEEDS ATTENDED TO. PATIENT KEPT CLEAN AND DRY THROUGHOUT THE NIGHT. WILL ENDORSE TO ONCOMING SHIFT ABOUT [place].
[2020-03-11 07:22] LABS: BASOPHILS % (AUTO) 0.3 % (0.0-2.0); EOSINOPHILS % (AUTO) 0.1 % (0.0-6.0); HEMATOCRIT 30 % (39-51); HEMOGLOBIN 10.3 g/dL (13.5-17.5); LYMPHOCYTES # (AUTO) 0.4 /CMM (0.8-4.8); LYMPHOCYTES % (AUTO) 3.1 % (20.0-44.0); MEAN CORPUSCULAR HGB CONC 34 g/dl (31.0-36.0); MEAN CORPUSCULAR VOLUME 100 fL (80-96); MONOCYTES # (AUTO) 0.4 /CMM (0.1-1.30); MONOCYTES % (AUTO) 3.4 % (2.0-12.0); NEUTROPHILS # (AUTO) 11.9 /CMM (1.8-8.9); NEUTROPHILS % (AUTO) 93.1 % (43.0-81.0); PLATELET COUNT (AUTO) 191 /CMM (150-450); RED BLOOD CELL COUNT(AUTO) 3.03 MIL/uL (4.5-6.0); WHITE BLOOD COUNT (AUTO) 12.8 K/uL (4.3-11.0)
[2020-03-11 07:41] LABS: CALCIUM, SERUM 8.6 mg/dL (8.5-10.1); CREATININE 0.7 mg/dL (0.6-1.3); POTASSIUM 4.1 mmol/L (3.5-5.1)
--- NOTE | 2020-03-11 07:55 | NUR ---
RN Opening Note Received patient in bed, AO x 2, able to responds all stimuli, does no appears pain or discomfort. Respiratory even and unlabored on room air, no distress or SOB observed. Skin is warm to touch keep clean/dry intact midline site on right upper arm, hernandez cath draining gravity. Kept locked bed with elevated HOB for ensure airway and aspiration precaution and lowest position for safety. Call light within reach, will continue to monitor.
[2020-03-11 08:00] VITALS: BP 111/70
[2020-03-11] MEDS: TIMOLOL 0.5% SOLN OPHTH 5 ML BOTTLE EACHEYE SCH ×2 (09:00→16:13)
[2020-03-11] MEDS: DORZOLAMIDE OPTH 2% 10 ML BOTTLE EACHEYE SCH ×2 (09:00→16:13)
[2020-03-11] MEDS: ENOXAPARIN SODIUM 40 MG/0.4 ML DISP.SYRIN SQ SCH (09:00)
[2020-03-11] MEDS: BRIMONIDINE TARTRATE OPHT SOLN 5 ML BOTTLE EACHEYE SCH ×2 (09:00→16:12)
[2020-03-11] MEDS: PROSOURCE / PROSTAT (PYXIS) 30 ML UDC GT SCH ×2 (09:00→16:13)
[2020-03-11] MEDS: VANCOMYCIN 1 GM in IV D5W 250 ML IV SCH ×2 (09:36→22:00)
[2020-03-11] MEDS: PIOGLITAZONE HCL 15 MG TABLET GT SCH (09:43)
[2020-03-11] MEDS: ASCORBIC ACID 500 MG TABLET GT SCH ×2 (09:43→16:12)
[2020-03-11] MEDS: MULTIVIT W/MINERALS 1 TAB TABLET GT SCH (09:43)
[2020-03-11] MEDS: CHOLECALCIFEROL 1,000 UNIT TABLET (VIT D3) GT SCH ×3 (09:44→16:12)
[2020-03-11] MEDS: DOXAZOSIN MESYLATE (1 MG) 1 MG TABLET GT SCH (09:44)
[2020-03-11] MEDS: LEVETIRACETAM SOL (5 ML) 100 MG/ML UDC GT SCH ×2 (09:44→16:12)
[2020-03-11] MEDS: TRIAMTERENE/HYDROCHLOROTHIAZID (37.5/25MG) 1 UDCAP GT SCH (09:47)
[2020-03-11 12:00] VITALS: BP 130/67
[2020-03-11] MEDS: PANTOPRAZOLE 40 MG/PACK PACK GT SCH (12:23)
[2020-03-11] MEDS: DIGOXIN 0.125 MG TABLET GT SCH (12:31)
[2020-03-11] MEDS: CEFTRIAXONE 1 G in IV D5W 50 ML IV SCH (15:21)
[2020-03-11 16:00] VITALS: BP 103/58
--- NOTE | 2020-03-11 17:45 | NUR ---
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
--- NOTE | 2020-03-11 18:04 | NUR ---
RN Closing note Patient in bed resting confusing and creaming, noticed pulled out midline and refused IV line insertion, Dr. Nelson made aware. Pt does no appears discomfort, skin is warm to touch keep clean/dry. Respiratory even and unlabored on room air 95%, no sob or distress observed. Kept locked bed and elevated HOB for ensure airway and aspiration precaution, and lowest position for safety, bed alarm is on at all the times, call light within reach, will endorse technical healthcare consultant.
--- NOTE | 2020-03-11 19:00 | NUR ---
RN OPENING NOTES Received patient awake on bed. Denies any discomfort at this time. Noted confused. On tele monitor with NSR noted. Kept on bed clean, dry and comfortable. Call light within easy reach. Will continue to monitor accordingly.
[2020-03-11 20:03] VITALS: BP 124/73
--- NOTE | 2020-03-11 21:00 | NUR ---
RN NOTES Pt refused blood draw for [facility] at this time. Paged business controller .
--- NOTE | 2020-03-11 22:00 | NUR ---
RN NOTES Received call back from Dr. Phelps. PT not advised for sedation. Per MD, encouraged patient to cooperate. Pt still refusing at this time. Will try again later.
[2020-03-12 00:08] VITALS: BP 103/62
[2020-03-12] MEDS: HYDROCODONE/APAP 5/325MG TABLET PO PRN (01:13)
[2020-03-12 04:33] VITALS: BP 125/70
--- NOTE | 2020-03-12 05:56 | NUR ---
RN NOTES Explained to patient the purpose and importance of blood draw - patient insisted to refused and said "No blood please". Repeated the information 3x, patient insisted to refuse. No blood draw done.
--- NOTE | 2020-03-12 06:38 | NUR ---
RN CLOSING NOTES Pt asleep, on sinus argenis on monitor. No new complaints made. All nursing needs attended. Pt refused any blood draw or reinsertion of peripheral IV line. Kept on bed clean, dry and comfortable. Endorsed.
[2020-03-12] MEDS: MULTIVIT W/MINERALS 1 TAB TABLET GT SCH (08:14)
[2020-03-12] MEDS: LEVETIRACETAM SOL (5 ML) 100 MG/ML UDC GT SCH (08:14)
[2020-03-12] MEDS: DOXAZOSIN MESYLATE (1 MG) 1 MG TABLET GT SCH (08:14)
[2020-03-12] MEDS: ASCORBIC ACID 500 MG TABLET GT SCH (08:14)
[2020-03-12] MEDS: PIOGLITAZONE HCL 15 MG TABLET GT SCH (08:14)
[2020-03-12] MEDS: TRIAMTERENE/HYDROCHLOROTHIAZID (37.5/25MG) 1 UDCAP GT SCH (08:15)
[2020-03-12] MEDS: ENOXAPARIN SODIUM 40 MG/0.4 ML DISP.SYRIN SQ SCH (08:53)
[2020-03-12] MEDS: PROSOURCE / PROSTAT (PYXIS) 30 ML UDC GT SCH (08:53)
[2020-03-12] MEDS: CHOLECALCIFEROL 1,000 UNIT TABLET (VIT D3) GT SCH ×2 (08:54→13:04)
[2020-03-12 09:00] VITALS: BP 119/88
[2020-03-12] MEDS: VANCOMYCIN 1 GM in IV D5W 250 ML IV SCH (10:00)
--- NOTE | 2020-03-12 10:00 | NUR ---
RN NOTE VANCOMYCIN IV DUE AT 1000 IS NOT ADMINISTERED DUE TO PATIENT HAS NO IV ACCESS LINE AND REFUSING TO GET ONE. DR DOWNEY IS MADE AWARE.
--- NOTE | 2020-03-12 10:26 | NUR ---
RN NOTE THE PATIENT IS RECEIVED IN BED. PATIENT IS ALERT AND ORIENTED TO SELF. ABLE TO MAKE NEEDS KNOWN VERBALLY. DENIES PAIN. PATIENT IS IN ROOM AIR AND DENIES SOB. RESPIRATION REGULAR AND UNLABORED. TELE BOX READING IS SR 65. NO IV ACCESS AND PER CHEMICAL PREPARER MD IS AWARE. BRISCOE CATH PRESENT. NO BLADDER DISTENSION NOTED. GT PRESENT AND NO FEEDING AT THIS TIME. BED LOW AND LOCKED. SIDE RAILS UP X3. CALL LIGHT WITHIN REACH. WILL CONTINUE TO MONITOR.
[2020-03-12] MEDS: BRIMONIDINE TARTRATE OPHT SOLN 5 ML BOTTLE EACHEYE SCH (11:00)
[2020-03-12] MEDS: DORZOLAMIDE OPTH 2% 10 ML BOTTLE EACHEYE SCH (11:00)
[2020-03-12] MEDS: TIMOLOL 0.5% SOLN OPHTH 5 ML BOTTLE EACHEYE SCH (11:00)
[2020-03-12 11:07] LABS: BASOPHILS # (AUTO) 0.1 /CMM (0.0-0.2); BASOPHILS % (AUTO) 0.8 % (0.0-2.0); EOSINOPHILS % (AUTO) 0.2 % (0.0-6.0); HEMATOCRIT 37 % (39-51); HEMOGLOBIN 12.5 g/dL (13.5-17.5); LYMPHOCYTES % (AUTO) 8.4 % (20.0-44.0); MEAN CORPUSCULAR HGB CONC 33 g/dl (31.0-36.0); MEAN CORPUSCULAR VOLUME 101 fL (80-96); MONOCYTES # (AUTO) 0.4 /CMM (0.1-1.30); NEUTROPHILS # (AUTO) 10.8 /CMM (1.8-8.9); NEUTROPHILS % (AUTO) 87.6 % (43.0-81.0); PLATELET COUNT (AUTO) 229 /CMM (150-450); RED BLOOD CELL COUNT(AUTO) 3.72 MIL/uL (4.5-6.0); WHITE BLOOD COUNT (AUTO) 12.4 K/uL (4.3-11.0)
--- NOTE | 2020-03-12 11:17 | NUR ---
RN NOTE RECEIVED AN ORDER FOR BILATERAL SIFT WRIST RESTRAINS DUE TO PATIENT TRYING TO PULL OUT HIS BRISCOE CATH AND GT.
[2020-03-12 11:33] LABS: CALCIUM, SERUM 9.3 mg/dL (8.5-10.1); CREATININE 0.7 mg/dL (0.6-1.3); PHOSPHORUS 3.1 mg/dL (2.5-4.9); POTASSIUM 3.7 mmol/L (3.5-5.1)
[2020-03-12] MEDS ORDERED: BRIM5DRO5 EACHEYE (12:14)
[2020-03-12] MEDS ORDERED: TIMO5DRO18 EACHEYE (12:14)
[2020-03-12] MEDS: PANTOPRAZOLE 40 MG/PACK PACK GT SCH (12:19)
[2020-03-12 12:45] VITALS: BP 116/74
[2020-03-12] MEDS: DIGOXIN 0.125 MG TABLET GT SCH (13:04)
[2020-03-12] MEDS: DEXAMETHASONE SOD PHOSPHATE 10 MG/ML VIAL IV SCH (13:04)
[2020-03-12 13:33] LABS: BAND % (MANUAL) 5 % (0.0-5.0); LYMPHOCYTES % (MANUAL) 14 % (16-48); MONOCYTES % (MANUAL) 5 % (0-11.0); NEUTROPHILS % (MANUAL) 76 (42-76)
--- NOTE | 2020-03-12 15:32 | NUR ---
RN NOTE THE PATIENT ALERT AND ORIENTED X1. DENIES PAIN. PATIENT IS IN ROOM AIR AND SATURATION IS AT 96%. DENIES SOB. RESPIRATION REGULAR AND UNLABORED. PATIENT IS IN NO APPARENT DISTRESS. ABLE TO MAKE NEEDS KNOWN VERBALLY. BRISCOE CATH IN PLACE AND DRAINED 800ML CLEAR, YELLOW COLOR URINE WITH NO FOUL ODOR. GT PRESENT. ABDOMEN SOFT AND NON-DISTENDED. DISCHARGE EDUCATION PROVIDED TO THE PATIENT. REPORT GIVEN TO NURSE REYNOSO. THE PATIENT LEAVING THE HOSPITAL VIA AMBULANCE AND IN STABLE CONDITION.
== END 2020-03-12 15:40 | DRG 871 ==
LOC: ER 09:47 → TELE2 12:50
PROVIDERS: ADMIT Family Medicine; ATTEND Student in an Organized Health Care Education/Training Program
PROC: 05HY33Z Insertion of Infusion Device into Upper Vein, Percutaneous Approach (ICD-10-PCS; principal; 2020-03-10)
DX: A41.89 Other specified sepsis (principal); U07.1 COVID-19; N17.0 Acute kidney failure with tubular necrosis; J12.89 Other viral pneumonia; J96.01 Acute respiratory failure with hypoxia; N39.0 Urinary tract infection, site not specified; G93.40 Encephalopathy, unspecified; E87.2 Acidosis; C79.31 Secondary malignant neoplasm of brain; C34.90 Malignant neoplasm of unspecified part of unspecified bronchus or lung; I48.91 Unspecified atrial fibrillation; I11.0 Hypertensive heart disease with heart failure; I50.9 Heart failure, unspecified; G40.909 Epilepsy, unspecified, not intractable, without status epilepticus; Z87.891 Personal history of nicotine dependence; R13.10 Dysphagia, unspecified; Z93.1 Gastrostomy status; Z79.899 Other long term (current) drug therapy; E11.65 Type 2 diabetes mellitus with hyperglycemia; Z79.52 Long term (current) use of systemic steroids; R65.20 Severe sepsis without septic shock
CPT/HCPCS: 36415; 71045-TC; 80048-TC; 80053-TC; 80061-TC; 80162-TC; 80202-TC; 81001; 82247-TC; 82248-TC; 82550-TC; 82728-TC; 83605-TC; 83615-TC; 83735-TC; 83880; 84100-TC; 84484-TC; 85025-TC; 85378-TC; 85730-TC; 86140-TC; 87040-TC; 87081-TC; 87086-TC; 87186-TC; A6403; G0378; J0696; J1100; J1650; J1953; J1956; J2543; J3370; J7040; J7060; U0003